=== PATIENT | female | born 1975 | race Caucasian/White ===

== ENCOUNTER → 2016-11-02 | Outpatient (CLI) | payer OTHER, MEDICAID ==
[~2016-11-02] MED LIST: /ESOM40CA; ACAM0.05 PO; COLA100C PO; FLUO20CA9 PO; FURO20TA2 PO; HYDR-4274 PO; IBUPOTC PO; MAXA10TA17; No Historical Meds; PANT40TA2 PO; PERCOCET PO; SERO400T3; TOPA100T8 PO; TOPI200T4 PO; TRAZ50TA4 PO; TRAZO50TA PO
--- NOTE | 2016-11-02 18:43 | REP ---
Clinical: Lower back pain. Technique: AP, lateral, bilateral oblique, and coned-down views. Findings: Alignment and lordosis is maintained. The vertebral bodies including transverse process and spinous processes are intact and normal. There is no evidence for acute fracture / compression injury or subluxation. No evidence for spondylolysis or spondylolisthesis. No significant degenerative change is noted. Old right rib fractures noted. Impression: Age appropriate lumbosacral spine radiograph series. Old right rib fractures. Signed by Drew Ingram MD 11/02/2016 06:34 P
== END ==
LOC: M WUC 18:12
PROVIDERS: ATTEND Physician Assistant
DX: M54.5 Low back pain (principal)

== ENCOUNTER → 2017-01-18 | Outpatient (CLI) | payer OTHER ==
[~2017-01-18] MED LIST changes: -COLA100C PO; +COLA100C3 PO
--- NOTE | 2017-01-18 11:16 | REPMRS ---
Patient History The patient states she has not had a clinical breast exam in over a year. Family history of breast cancer in mother at age 50 and breast cancer in maternal grandmother at age 60. Digital Mammo Screening Bilat: January 18, 2017 - Exam #: [id number] Bilateral CC and MLO view(s) were taken. Technologist: Gale Stiles, Technologist FINDINGS: There are scattered fibroglandular densities. There is no evidence of cancer on this mammogram. ASSESSMENT: BI-RADS/ACR category 2 mammogram. Benign finding(s). Recommendation Routine screening mammogram of both breasts in 1 year (for women over age 40). This mammogram was interpreted with the aid of an FDA-approved computer-aided dectection system. Electronically Signed By: Sujit Schwartz MD 01/18/17 [id number]
== END ==
LOC: M RAD 10:03
PROVIDERS: ATTEND Family Medicine Addiction Medicine
DX: Z12.31 Encounter for screening mammogram for malignant neoplasm of breast (principal); Z80.3 Family history of malignant neoplasm of breast

== ENCOUNTER 2017-02-11 08:29 | Emergency (ER) | payer MEDICAID, OTHER ==
[~2017-02-11] VITALS: Ht 170.2 cm; Wt 74.8 kg
[2017-02-11 08:36] VITALS: BP 115/71
[2017-02-11] MEDS ORDERED: KETOROLAC 30 MG/ML VIAL (J1885) As Ordered ONE (09:09)
[2017-02-11] MEDS ORDERED: IBUP80TA PO (09:13)
[2017-02-11] MEDS ORDERED: KETOROLAC 60 MG/2 ML VIAL (J1885) IM ONE (09:15)
--- NOTE | 2017-02-11 09:45 | REP ---
Clinical: Trauma . Comparison: 06/23/2016 . Technique: PA and lateral. Findings: The mediastinum and cardiac silhouette are normal. The lung hunt are clear and without acute consolidation, effusion, or pneumothorax. Old right rib fractures identified. Impression: 1. No acute cardiopulmonary process. 2. Old right rib fractures. No definite acute rib fracture although injury to the lateral left fifth rib cannot definitively be excluded. Signed by Drew Ingram MD 02/11/2017 09:37 A
--- NOTE | 2017-02-11 09:49 | REP ---
Clinical: Trauma. Technique: Multiple AP and lateral view of the sacrum and coccyx. Findings: The sacroiliac joints are intact, symmetric and normal. The sacrum and coccyx are intact and stable when compared with CT dated 06/13/2016. Impression: No acute sacrococcygeal fracture or injury. Signed by Drew Ingram MD 02/11/2017 09:40 A
== END 2017-02-11 10:08 | disposition home or self-care (01) ==
LOC: M ED 09:21
DX: S20.219A Contusion of unspecified front wall of thorax, initial encounter (principal); S30.0XXA Contusion of lower back and pelvis, initial encounter; W01.0XXA Fall on same level from slipping, tripping and stumbling without subsequent striking against object, initial encounter; Y92.009 Unspecified place in unspecified non-institutional (private) residence as the place of occurrence of the external cause; Y93.89 Activity, other specified; Y99.8 Other external cause status; J45.909 Unspecified asthma, uncomplicated; F41.9 Anxiety disorder, unspecified; F32.9 Major depressive disorder, single episode, unspecified; Z87.09 Personal history of other diseases of the respiratory system; Z88.0 Allergy status to penicillin; Z88.2 Allergy status to sulfonamides; Z88.8 Allergy status to other drugs, medicaments and biological substances; Z79.899 Other long term (current) drug therapy

== ENCOUNTER → 2017-11-15 | Outpatient (CLI) | payer OTHER ==
[2017-11-15 19:18] LABS: FREE T4 0.68 NG/DL (0.76-1.46)
[2017-11-15 21:47] LABS: PROLACTIN 19.5 NG/ML
[2017-11-16 07:59] LABS: LITHIUM LEVEL 0.54 MEQ/L (0.60-1.20)
== END ==
LOC: M SMT 14:12
DX: N64.52 Nipple discharge (principal); Z51.81 Encounter for therapeutic drug level monitoring
CPT/HCPCS: 80178

== ENCOUNTER 2019-07-28 00:38 | Emergency (ER) | payer BC, MEDICAID, OTHER ==
[~2019-07-28] VITALS: Ht 170.2 cm; Wt 79.5 kg
[2019-07-28 00:38] VITALS: BP 131/82
[~2019-07-28 00:38] MED LIST changes: -/ESOM40CA; -COLA100C3 PO; +COLA100C5 PO; +FLUO20CA19 PO; -FLUO20CA9 PO; -HYDR-4274 PO; +HYDR50TA70 PO; +IBUP80TA PO; +NEXI1CAP3; -PANT40TA2 PO; +PANT40TA3 PO; +TOPA100T12 PO; -TOPA100T8 PO; -TOPI200T4 PO; +TOPI200T7 PO; +TRAZ-252 PO; +TRAZ1TAB6 PO; -TRAZ50TA4 PO; -TRAZO50TA PO
[2019-07-28] MEDS ORDERED: TRAZ1TAB14 PO (00:50)
[2019-07-28] MEDS ORDERED: GABA-843 PO (00:50)
[2019-07-28] MEDS ORDERED: OXYCODONE/APAP 5MG/325MG(BULK FOR ED) 1 TABLET PO ONE (01:30)
[2019-07-28] MEDS ORDERED: CLINDAMYCIN 600 MG in IV 1 EA IV ONE (01:30)
[2019-07-28] MEDS ORDERED: PERCOCET 5MG/325MG TAB PO ONE (01:30)
[2019-07-28] MEDS ORDERED: CLEO150C PO (01:37)
[2019-07-28] MEDS ORDERED: DIFL150T PO (01:39)
== END 2019-07-28 02:04 | disposition home or self-care (01) ==
LOC: M ED 00:38
DX: K04.7 Periapical abscess without sinus (principal); Z79.899 Other long term (current) drug therapy; Z88.0 Allergy status to penicillin; Z88.1 Allergy status to other antibiotic agents; Z88.2 Allergy status to sulfonamides; Z88.8 Allergy status to other drugs, medicaments and biological substances

== ENCOUNTER 2019-08-18 18:37 | Emergency (ER) | payer BC, SELFPAY ==
[~2019-08-18] VITALS: Ht 170.2 cm; Wt 88.1 kg
[2019-08-18 18:37] VITALS: BP 130/84
[~2019-08-18 18:37] MED LIST changes: +CLEO150C PO; +DIFL150T PO; +GABA-843 PO; +TRAZ1TAB14 PO
[2019-08-18] MEDS ORDERED: PROTPAK PO (19:07)
[2019-08-18] MEDS ORDERED: DOXY-350 PO (19:41)
[2019-08-18] MEDS ORDERED: VENTAER INH (19:41)
[2019-08-18] MEDS ORDERED: DOXYCYCLINE HYCLATE 100 MG TAB PO ONE (19:45)
== END 2019-08-18 19:59 | disposition home or self-care (01) ==
LOC: M ED 18:37
DX: J01.00 Acute maxillary sinusitis, unspecified (principal); J45.909 Unspecified asthma, uncomplicated; K21.9 Gastro-esophageal reflux disease without esophagitis; F32.9 Major depressive disorder, single episode, unspecified; Z79.51 Long term (current) use of inhaled steroids; Z79.899 Other long term (current) drug therapy; Z87.442 Personal history of urinary calculi; Z88.0 Allergy status to penicillin; Z88.2 Allergy status to sulfonamides; Z88.8 Allergy status to other drugs, medicaments and biological substances

== ENCOUNTER 2019-09-07 00:41 | Emergency (ER) | payer SELFPAY ==
[~2019-09-07] VITALS: Ht 170.2 cm; Wt 77.3 kg
[~2019-09-07 00:41] MED LIST changes: +DOXY-350 PO; +PROTPAK PO; +VENTAER INH
[2019-09-07] MEDS ORDERED: PRIL20TA2 PO (01:04)
--- NOTE | 2019-09-07 02:06 | REPVR ---
PROCEDURE INFORMATION: Exam: CT Head Without Contrast Exam date and time: 09/07/2019 1:22 AM Age: 44 years old Clinical indication: Injury or trauma; Fall; Initial encounter; Concussion / head injury TECHNIQUE: Imaging protocol: Computed tomography of the head without contrast. Radiation optimization: All CT scans at this facility use at least one of these dose optimization techniques: automated exposure control; mA and/or kV adjustment per patient size (includes targeted exams where dose is matched to clinical indication); or iterative reconstruction. COMPARISON: CT Head without contrast 10/23/2013 3:26 PM FINDINGS: Brain: Normal. No hemorrhage. Unremarkable white matter. No mass effect. Ventricles: Normal. No ventriculomegaly. Bones/joints: Unremarkable. No acute fracture. Sinuses: Visualized sinuses are unremarkable. No fluid levels. Mastoid air cells: Visualized mastoid air cells are well aerated. Soft tissues: Unremarkable. IMPRESSION: No acute intracranial abnormality. Electronically signed by: Benji Mora On 09/07/2019 02:06:21 AM
--- NOTE | 2019-09-07 02:11 | REPVR ---
PROCEDURE INFORMATION: Exam: CT Maxillofacial Without Contrast Exam date and time: 09/07/2019 1:22 AM Age: 44 years old Clinical indication: Injury or trauma; Fall; Initial encounter; Concussion /head injury; Loss of consciousness not known TECHNIQUE: Imaging protocol: Computed tomography images of the face without contrast. Radiation optimization: All CT scans at this facility use at least one of these dose optimization techniques: automated exposure control; mA and/or kV adjustment per patient size (includes targeted exams where dose is matched to clinical indication); or iterative reconstruction. COMPARISON: CT Maxilofacial w/out contrast 10/23/2013 3:26 PM FINDINGS: Orbits: Orbits are normal. Globes are unremarkable. Sinuses: Normal. No air-fluid levels. Bones/joints: No acute fracture. Soft tissues: Unremarkable. IMPRESSION: No acute findings. Electronically signed by: Benji Mora On 09/07/2019 02:11:16 AM
[2019-09-07] MEDS ORDERED: TOPI100T9 PO (02:35)
[2019-09-07] MEDS ORDERED: OMEP-172 PO (02:35)
[2019-09-07] MEDS ORDERED: IBUP200T43 PO (02:35)
[2019-09-07] MEDS ORDERED: GABA-843 PO (02:35)
[2019-09-07] MEDS ORDERED: TRAZ1TAB14 PO (02:35)
[2019-09-07 03:36] VITALS: BP 142/93
== END 2019-09-07 03:40 | disposition home or self-care (01) ==
LOC: M ED 00:41
DX: T74.11XA Adult physical abuse, confirmed, initial encounter (principal); Y07.04 Female partner, perpetrator of maltreatment and neglect; Y92.9 Unspecified place or not applicable; Y93.9 Activity, unspecified; Y99.9 Unspecified external cause status; F10.10 Alcohol abuse, uncomplicated; F60.3 Borderline personality disorder; F60.7 Dependent personality disorder; Z79.899 Other long term (current) drug therapy; Z88.0 Allergy status to penicillin; Z88.2 Allergy status to sulfonamides; Z88.8 Allergy status to other drugs, medicaments and biological substances

== ENCOUNTER 2019-12-01 01:26 | Inpatient (IN) | payer OTHER, SELFPAY ==
[~2019-12-01] VITALS: Ht 170.2 cm; Wt 87.6 kg
[~2019-12-01 01:26] MED LIST changes: -FLUO20CA19 PO; +FLUO20CA22 PO; +IBUP200T43 PO; +OMEP1CAP73 PO; +PRIL20TA2 PO; +TOPI100T9 PO
[2019-12-01] MEDS ORDERED: DEXTROSE 50% 50 ML SYRINGE IV STA (01:53)
[2019-12-01 02:48] LABS: BASO % 0.3 % (0.0-1.0); EOS # 0.1 10^3/uL (0.0-0.5); EOS % 0.5 % (0.0-3.0); HEMATOCRIT 39.5 % (36.0-47.0); HEMOGLOBIN 12.8 g/dl (12.0-15.5); LYMPH # 3.1 10^3/uL (1.5-5.0); LYMPH % 33.3 % (24.0-44.0); MEAN CORPUSCULAR HEMOGLOBIN 30.6 pg (27.0-33.0); MEAN CORPUSCULAR HGB CONC 32.4 g/dl (32.0-36.5); MEAN CORPUSCULAR VOLUME 94.5 fl (80.0-96.0); MONO # 0.8 10^3/uL (0.0-0.8); MONO % 8.6 % (0.0-5.0); NEUTROPHILS # 5.3 10^3/uL (1.5-8.5); PLATELET COUNT, AUTOMATED 236 10^3/uL (150-450); RED BLOOD COUNT 4.18 10^6/uL (4.00-5.40); WHITE BLOOD COUNT 9.2 10^3/uL (4.0-10.0)
[2019-12-01 03:08] LABS: AMPHETAMINES LEVEL URINE NEGATIVE (NEGATIVE); BARBITURATES URINE NEGATIVE (NEGATIVE); BENZODIAZEPINES URINE NEGATIVE (NEGATIVE); CANNABINOIDS URINE NEGATIVE (NEGATIVE); COCAINE METABOLITE URINE NEGATIVE (NEGATIVE); METHADONE URINE NEGATIVE (NEGATIVE); OPIATES URINE POSITIVE (NEGATIVE); PHENCYCLIDINE URINE NEGATIVE (NEGATIVE)
[2019-12-01 03:19] LABS: HCG, SERUM QUALITATIVE NEGATIVE (NEGATIVE)
[2019-12-01] MEDS ORDERED: CYCL10TA PO (03:20)
[2019-12-01] MEDS ORDERED: PANT40TA3 PO (03:20)
[2019-12-01 03:33] LABS: ACETAMINOPHEN LEVEL 2.9 UG/ML (10.0-30.0); ALBUMIN 4.1 GM/DL (3.2-5.2); ALT/SGPT 23 U/L (12-78); BILIRUBIN,DIRECT < 0.1 MG/DL (0.0-0.2); BILIRUBIN,TOTAL 0.2 MG/DL (0.2-1.0); BLOOD UREA NITROGEN 19 MG/DL (7-18); CALCIUM LEVEL 8.3 MG/DL (8.5-10.1); CARBON DIOXIDE LEVEL 24 MEQ/L (21-32); CHLORIDE LEVEL 109 MEQ/L (98-107); CPK CREATINE PHOSPHOKINASE 86 U/L (26-192); CREATININE FOR GFR 0.83 MG/DL (0.55-1.30); ETHYL ALCOHOL (ETHANOL) < 0.003 % (0.000-0.010); GLOMERULAR FILTRATION RATE > 60.0 (>58); GLUCOSE, FASTING 62 MG/DL (70-100); POTASSIUM SERUM 3.2 MEQ/L (3.5-5.1); SALICYLATE LEVEL 5.1 MG/DL (5.0-30.0); SODIUM LEVEL 140 MEQ/L (136-145); TOTAL PROTEIN 7.7 GM/DL (6.4-8.2)
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
[2019-12-01] MEDS ORDERED: MOM 30ML SUSPENSION UDC PO PRN (04:15)
[2019-12-01] MEDS ORDERED: GLUCAGON FOR INJ 1 MG VIAL (J1610) SC PRN (04:15)
[2019-12-01] MEDS ORDERED: MAALOX 30 ML SUSP *UDC PO PRN (04:15)
[2019-12-01] MEDS ORDERED: GLUCOSE 4 GM CHEW TABLET PO PRN (04:15)
[2019-12-01] MEDS ORDERED: DEXTROSE 50% 50 ML SYRINGE IV PRN (04:15)
[2019-12-01] MEDS ORDERED: GABA600T4 PO (04:18)
[2019-12-01] MEDS ORDERED: TRAZ-252 PO (04:18)
[2019-12-01] MEDS ORDERED: TOPI200T7 PO (04:18)
[2019-12-01] MEDS: ACETAMINOPHEN TAB 650MG DOSE (2X325MG) PO PRN ×3 (06:00→13:49)
[2019-12-01 06:10] LABS: HEMOGLOBIN A1c 5.2 %
[2019-12-01] MEDS: D5W/0.9% SODIUM CHLORIDE 1,000 ML IV SCH ×3 (06:58→20:45)
[2019-12-01] MEDS: traZODone 50 MG TAB PO SCH ×2 (07:06→20:44)
[2019-12-01] MEDS: TOPIRAMATE (TopAMAX) 100 MG TAB PO SCH ×2 (10:00→20:44)
[2019-12-01] MEDS: GABAPENTIN 300 MG CAP PO SCH ×3 (10:00→20:44)
[2019-12-01] MEDS: PANTOPRAZOLE 40MG TAB (PROTONIX) PO SCH (10:00)
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
[2019-12-01 13:39] VITALS: BP 132/82
[2019-12-01] MEDS ORDERED: METOCLOPRAMIDE INJ 10MG/2ML VIAL (J2765) IV ONE (16:00)
[2019-12-01] MEDS ORDERED: MAG SULF 1GM/100ML (MAG RUN) 1 GM in IV 1 EA IV ONE (16:00)
[2019-12-01] MEDS ORDERED: diphenhydrAMINE INJ 50MG/ML VIAL (J1200) IV ONE (16:00)
--- NOTE | 2019-12-01 19:29 | ECGEPIP ---
[facility] - ED Test Date: 2019-12-01 Pat Name: SHANIQUE DIAL Department: Room: [place] [address] Gender: Female Straightener And Aligner: CORDELL : 1975 Requested By: Dick Morgan Order Number: [id number] Reading MD: Dick Davidson Measurements Intervals [place] Rate: 93 P: 16 MD: 132 QRS: -22 QRSD: 105 T: 14 QT: 372 QTc: 463 Interpretive Statements SINUS RHYTHM MODERATE VOLTAGE CRITERIA FOR LVH, CONSIDER NORMAL VARIANT MODERATE INTRAVENTRICULAR CONDUCTION DELAY SIMILAR TO 09/13/16 Electronically Signed on 12-01-2019 19:29:46 EDT by Dick Davidson
[2019-12-01 19:45] VITALS: BP 121/82
[2019-12-01] MEDS ORDERED: IBUPROFEN 600 MG TAB PO PRN (20:15)
[2019-12-01 22:00] VITALS: BP 119/81
[2019-12-01] MEDS ORDERED: CYCLOBENZAPRINE 10 MG TAB PO PRN (22:45)
[2019-12-01] MEDS ORDERED: RAMELTEON 8 MG TAB (ROZEREM) PO SCH (23:00)
[2019-12-01] MEDS ORDERED: SUMAtriptan SUCCINATE 25 MG TAB PO ONE (23:00)
[2019-12-02 02:00] VITALS: BP 120/77
[2019-12-02] MEDS: ACETAMINOPHEN TAB 650MG DOSE (2X325MG) PO PRN (05:39)
[2019-12-02 06:00] VITALS: BP 118/68
[2019-12-02 06:04] LABS: HEMATOCRIT 37.3 % (36.0-47.0); MEAN CORPUSCULAR HEMOGLOBIN 30.6 pg (27.0-33.0); MEAN CORPUSCULAR HGB CONC 32.2 g/dl (32.0-36.5); MEAN CORPUSCULAR VOLUME 95.2 fl (80.0-96.0); PLATELET COUNT, AUTOMATED 204 10^3/uL (150-450); RED BLOOD COUNT 3.92 10^6/uL (4.00-5.40); WHITE BLOOD COUNT 5.8 10^3/uL (4.0-10.0)
[2019-12-02 06:20] LABS: BLOOD UREA NITROGEN 12 MG/DL (7-18); CALCIUM LEVEL 8.4 MG/DL (8.5-10.1); CARBON DIOXIDE LEVEL 23 MEQ/L (21-32); CHLORIDE LEVEL 118 MEQ/L (98-107); CREATININE FOR GFR 0.76 MG/DL (0.55-1.30); GLOMERULAR FILTRATION RATE > 60.0 (>58); GLUCOSE, FASTING 94 MG/DL (70-100); MAGNESIUM LEVEL 2.5 MG/DL (1.8-2.4); SODIUM LEVEL 145 MEQ/L (136-145)
[2019-12-02] MEDS: GABAPENTIN 300 MG CAP PO SCH (08:50)
[2019-12-02] MEDS: TOPIRAMATE (TopAMAX) 100 MG TAB PO SCH (08:50)
[2019-12-02] MEDS: PANTOPRAZOLE 40MG TAB (PROTONIX) PO SCH (08:51)
[2019-12-02 10:00] VITALS: BP 114/77
--- NOTE | 2019-12-02 12:25 | MHCRPDOC ---
[facility] Consultation Consultation DATE OF CONSULTATION: 12/02/19 CONSULTATION REQUESTED BY: Dr. Georges REASON FOR CONSULTATION: s/p OD on insulin RELEVANT HISTORY: Per medical admission note: "This is a 44-year-old female who took her 's insulin after having an argument with her. She denies thoughts to commit suicide and reported that she just did it because she was upset and added that "it was a stupid thing to do". They have been under a lot of stress lately and recently moved to a new home. Pt seen with her present and states that she and her have been having a lot of financial stress which caused them to have an argument and as a result of the argument pt took her 's Triseba even though she doesn't have DM "for attention." She denies she wanted to harm or kill herself and regrets her actions. She states that she and her are getting along well now and her is very supportive. Pt denies depression, anxiety, insomnia, SI/HI, hallucinations, delusions. She is future oriented toward supporting her with reconstructive hip surgery at [facility] in [place] this coming Wednesday. She and her feel safe to go home today. PAST PSYCHIATRIC HISTORY: The patient has a "very good [facility]" [facility]. She is not currently on any psychiatric medication but has been on Effexor and Paxil in the past. She has a diagnosis of depression. One admission [facility] 02/25/2016 after OD on topomax PAST MEDICAL HISTORY: Migraines GERD Depression Neuropathy affecting the left foot / left ankle surgery Tonsillectomy hx of multiple rib fractures, which were attributed to mechanical fall hx of C2-3 fx FAMILY HISTORY: noncontributory Family Psych history: her brother had attempted suicide by overdose, cousin attempted suicide by cutting, and the patient's half-brother committed suicide by overdose two and a half years ago. Her brother has depression. PERSONAL AND SOCIAL HISTORY: The patient was born in [place] and raised in [place]. She reports a happy childhood. The patient graduated from [employer]. The patient had attended [employer] ([employer]) and she did not graduate. She got at the age of 19 and she had three sons, who are now adults. She now has a 5yr old son. She reports leaving her in 2000, and since then, she has been in a relationship and now to a women. This is her third relationship with a woman. She currently lives in [place] with her and 5yr old son. 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 SUBSTANCE ABUSE HISTORY: She doesn't smoke She drinks socially She denies recreational drug use LEGAL HISTORY: denies MENTAL STATUS EXAMINATION: Patient is a 44-year old female, who is seen in hospital bed, cooperative and pleasant Speech is reg rate/rhythm/volume Language skills are good Thought processes including: linear, logical Thought content: denies SI/HI, future oriented Abstract reasoning, and computation: good Description of associations: appropriate. Description of abnormal or psychotic thoughts: denies Judgment: good Insight: good Orientation to x3 Recent and remote memory: intact Attention span and concentration: good Language: appropriate Fund of knowledge:average Mood: "good" Affect: Euthymic, full range DIAGNOSIS: 1. Adjustment d/o with anxiety and depression PLAN: 1. d/c 1:1 sitter 2. Pt safe to d/c home with her today with follow-[facility]. Vital Signs Vital Signs Date Time Temp Pulse Resp B/P (MAP) Pulse Ox O2 Delivery O2 Flow Rate FiO2 12/02/19 10:00 98.8 84 17 114/77 (89) 99 Room Air Laboratory Data 24H Labs Laboratory Tests 2 12/01/19 13:05: Bedside Glucose (Misc Panel) 84 12/01/19 16:34: Bedside Glucose (Misc Panel) 84 12/01/19 20:50: Bedside Glucose (Misc Panel) 85 12/02/19 03:05: Bedside Glucose (Misc Panel) 100 12/02/19 05:41: Nucleated Red Blood Cells % (auto) 0.0, Anion Gap 4L, Glomerular Filtration Rate > 60.0, Calcium Level 8.4L, Magnesium Level 2.5H 12/02/19 05:53: Bedside Glucose (Misc Panel) 92 12/02/19 11:07: Bedside Glucose (Misc Panel) 106H Home Medications Current Medications Current Medications Medications (Trade) Dose Ordered Sig/Meet Route PRN Reason Start Time Stop Time Status Last Admin Dose Admin Acetaminophen (Tylenol Tab) 650 mg Q4H PRN PO PAIN OR FEVER 12/01/19 04:15 12/02/19 05:39 Al Hydrox/Mg Hydrox/Simethicone (Mylanta) 30 ml DAILY PRN PO DYSPEPSIA 12/01/19 04:15 Cyclobenzaprine HCl (Flexeril) 10 mg TIDP PRN PO MUSCLE SPASMS 12/01/19 22:45 Dextrose (Dextrose 50%) 25 ml ASDIRECTED PRN IV SEE LABEL COMMENTS 12/01/19 04:15 Dextrose (Dextrose 50%) 50 ml STAT STAT IV 12/01/19 01:53 12/01/19 01:55 DC 12/01/19 02:26 Dextrose/Sodium Chloride 1,000 ml @ 125 mls/hr Q8H IV 12/01/19 06:15 12/02/19 00:35 DC 12/01/19 20:45 Gabapentin (Neurontin) 900 mg TID PO 12/01/19 09:00 12/02/19 08:50 Glucagon (Glucagon) 1 mg ASDIRECTED PRN SC SEE LABEL COMMENTS 12/01/19 04:15 Glucose (Glucose) 16 GM ASDIRECTED PRN PO SEE LABEL COMMENTS 12/01/19 04:15 Home Med (Med Rec Complete!) ASDIRECTED XX 12/01/19 04:30 12/01/19 04:20 DC Ibuprofen (Advil) 600 mg Q12HP PRN PO PAIN 12/01/19 20:15 12/02/19 08:51 Magnesium Hydroxide (Milk Of Magnesia) 30 ml DAILY PRN PO CONSTIPATION 12/01/19 04:15 Pantoprazole Sodium (Protonix) 40 mg DAILY PO 12/01/19 09:00 12/02/19 08:51 Ramelteon (Rozerem) 8 mg QHS PO 12/01/19 23:00 12/01/19 23:04 Topiramate (TopAMAX) 200 mg BID PO 12/01/19 09:00 12/02/19 08:50 Trazodone HCl (Desyrel) 75 mg QHS PO 11/30/19 21:00 12/01/19 20:44 Scheduled Gabapentin (Gabapentin) 600 Mg Tablet, 900 MG PO TID, (Reported) Pantoprazole Sodium (Pantoprazole Sodium) 40 Mg Tablet.dr, 40 MG PO DAILY, (Reported) Topiramate (Topiramate) 200 Mg Tablet, 200 MG PO BID, (Reported) Trazodone HCl (Trazodone HCl) 50 Mg Tablet, 75 MG PO QHS, (Reported) Scheduled PRN Cyclobenzaprine HCl (Cyclobenzaprine HCl) 10 Mg Tablet, 10 MG PO TID PRN for MUS HARMONY SPASMS, (Reported) Allergies Coded Allergies: Cephalosporins (Verified Allergy, Unknown, 07/28/19) Penicillins (Verified Allergy, Unknown, HIVES, 07/28/19) Quinazolinones (Verified Allergy, Unknown, RESPIRATORY DISTRESS, 07/28/19) Sulfa (Sulfonamide Antibiotics) (Verified Allergy, Unknown, HIVES , 07/28/19) cetylpyridinium chloride (Verified Allergy, Unknown, RESPIRATORY DISTRESS, 07/28/19) WILLIAM MCKINNON DO Dec 02, 2019 11:56
--- NOTE | 2019-12-03 12:08 | DS.PDOC ---
Discharge Summary General Date of Admission Dec 01, 2019 at 04:13 Date of Discharge 12/02/19 Discharge Summary PROCEDURES PERFORMED DURING STAY: [None]. DISCHARGE DIAGNOSES: Hypoglycemia Intentional intake of Trulicity for attention seeking Adjustement disorder with anxiety and depression Borderline personality disorder Migraines GERD Neuropathhic pain in the ankle. Alcohol use disorder hx of multiple rib fractures, which were attributed to mechanical fall hx of C2-3 fx COMPLICATIONS/CHIEF COMPLAINT: Overdose On Insulin. HISTORY OF PRESENT ILLNESS: See history and physical HOSPITAL COURSE: This is a 44-year-old with a history of depression, Alcohol use disorder, Borderline personality disorder, dependent disorder ,migraines GERD and neuropathic pain was admitted for hypoglycemia initially thought she took tresiba insulin but later confirmed that it was trulicity. Tiffanie said she was drunk and wa having an argument with regarding financial issues and then she took her "s trulicity to gain attention. Says after she came off the Buzz she called her son in [place] who works as an EMT and told him what she took . Son urged her to come to the ED to be checked out. Hypoglycemia probably from alcohol and not taking po food for several hours. Patient took trulicity and not Treseba insulin. Trulicity does not cause much hypoglycemia No hypoglycemia after admission History of depression and anxiety seen by psychiatry and cleared for discharge. she is not a threat to herself and does not have any suicidal thoughts or ideas. Multiple bruises and abrasions New bruises and abrasions or on the hands. She also has old bruises on her legs. She has a history of ankle fracture, neck fracture and rib fractures says due to mechanical fall. Migraines topiramate Left ankle neuropathic pain gabapentin H/o Polysubstance Abuse smoking cessation education GERD - PPI DISCHARGE MEDICATIONS: Please see below. ALLERGIES: Please see below. PHYSICAL EXAMINATION ON DISCHARGE: VITAL SIGNS: Please see below. GEN: well-nourished / well developed/ anxious INTEGUMENT: Has old bruises on her lower legs along with fresh bruises and abrasions on her hands and wrists HEENT: NCAT / lips acyanotic /mucus membranes moist and pink CVS: RRR/NMRG/ trace lower extremity edema LUNGS: clear to auscultation bilaterally on room air ABDOMEN: soft & not tender with palpation NEURO: CN 2-12 are grossly intact / speech is not dysarthric PSYCH: alert and oriented to person place and time/ able to understand and follow all commands LABORATORY DATA: Please see below. ACTIVITY: [As tolerated]. DIET: Regular DISPOSITION: 01 Home, Self-Care. DISCHARGE INSTRUCTIONS: Follow up with PMD in 1 week DISCHARGE CONDITION: [Stable]. TIME SPENT ON DISCHARGE: 35 minutes. Vital Signs/I&Os Vital Signs Date Time Temp Pulse Resp B/P (MAP) Pulse Ox O2 Delivery O2 Flow Rate FiO2 12/02/19 10:00 98.8 84 17 114/77 (89) 99 Room Air I&O- Last 24 Hours up to 6 AM 12/03/19 06:00 Intake Total 600 ml Output Total 0 ml Balance 600 ml Discharge Medications Scheduled Gabapentin (Gabapentin) 600 Mg Tablet, 900 MG PO TID, (Reported) Pantoprazole Sodium (Pantoprazole Sodium) 40 Mg Tablet.dr, 40 MG PO DAILY, (Reported) Topiramate (Topiramate) 200 Mg Tablet, 200 MG PO BID, (Reported) Trazodone HCl (Trazodone HCl) 50 Mg Tablet, 75 MG PO QHS, (Reported) Scheduled PRN Cyclobenzaprine HCl (Cyclobenzaprine HCl) 10 Mg Tablet, 10 MG PO TID PRN for MUSCLE SPASMS, (Reported) Allergies Coded Allergies: Cephalosporins (Verified Allergy, Unknown, 07/28/19) Penicillins (Verified Allergy, Unknown, HIVES, 07/28/19) Quinazolinones (Verified Allergy, Unknown, RESPIRATORY DISTRESS, 07/28/19) Sulfa (Sulfonamide Antibiotics) (Verified Allergy, Unknown, HIVES , 07/28/19) cetylpyridinium chloride (Verified Allergy, Unknown, RESPIRATORY DISTRESS, 07/28/19) CURTIS CANTU MD Dec 03, 2019 12:08
== END 2019-12-02 14:00 | disposition home or self-care (01) | DRG 812 ==
LOC: M ED 01:26 → M ED INP 04:13 → ENRESERVDT 07:42 → ENRESERVTM 07:42 → ENRESERVDT 12:50 → ENRESERVTM 12:50 → M ED INP 13:16 → M MSPAV 13:32
PROVIDERS: ADMIT Internal Medicine; ATTEND Internal Medicine Nephrology
DX: T38.3X2A Poisoning by insulin and oral hypoglycemic [antidiabetic] drugs, intentional self-harm, initial encounter (principal); F32.9 Major depressive disorder, single episode, unspecified; E16.2 Hypoglycemia, unspecified; G43.909 Migraine, unspecified, not intractable, without status migrainosus; K21.9 Gastro-esophageal reflux disease without esophagitis; G57.92 Unspecified mononeuropathy of left lower limb; Z79.899 Other long term (current) drug therapy; Z88.0 Allergy status to penicillin; Z88.2 Allergy status to sulfonamides; Z88.1 Allergy status to other antibiotic agents; Z88.8 Allergy status to other drugs, medicaments and biological substances; F10.10 Alcohol abuse, uncomplicated; Z81.8 Family history of other mental and behavioral disorders; F43.23 Adjustment disorder with mixed anxiety and depressed mood; F60.3 Borderline personality disorder

== ENCOUNTER 2020-02-10 18:04 | Emergency (ER) | payer OTHER ==
[~2020-02-10] VITALS: Ht 170.2 cm; Wt 92.7 kg
[~2020-02-10 18:04] MED LIST changes: +CYCL-707 PO; +GABA600T4 PO
[2020-02-10] MEDS ORDERED: OMEP40CA97 PO (18:23)
[2020-02-10] MEDS ORDERED: IBUP200T45 PO (18:23)
[2020-02-10] MEDS ORDERED: TRAZ-186 PO (18:23)
[2020-02-10] MEDS ORDERED: GI COCKTAIL 50ML BTL(HYOSCYAMINE/MAALOX/LIDOCAINE VISCOUS)(1:3:1) PO ONE (18:30)
[2020-02-10 18:41] LABS: BASO % 0.3 % (0.0-1.0); EOS # 0.1 10^3/uL (0.0-0.5); EOS % 1.8 % (0.0-3.0); HEMOGLOBIN 12.6 g/dl (12.0-15.5); LYMPH # 2.7 10^3/uL (1.5-5.0); LYMPH % 39.7 % (24.0-44.0); MEAN CORPUSCULAR HEMOGLOBIN 29.7 pg (27.0-33.0); MEAN CORPUSCULAR HGB CONC 32.3 g/dl (32.0-36.5); MONO # 0.5 10^3/uL (0.0-0.8); MONO % 7.2 % (0.0-5.0); NEUTROPHILS # 3.5 10^3/uL (1.5-8.5); NEUTROPHILS % 50.7 % (36.0-66.0); PLATELET COUNT, AUTOMATED 219 10^3/uL (150-450); RED BLOOD COUNT 4.24 10^6/uL (4.00-5.40); WHITE BLOOD COUNT 6.8 10^3/uL (4.0-10.0)
[2020-02-10 19:13] LABS: ALBUMIN 3.7 GM/DL (3.2-5.2); ALT/SGPT 29 U/L (12-78); BILIRUBIN,DIRECT < 0.1 MG/DL (0.0-0.2); BILIRUBIN,TOTAL 0.2 MG/DL (0.2-1.0); BLOOD UREA NITROGEN 15 MG/DL (7-18); CALCIUM LEVEL 8.7 MG/DL (8.5-10.1); CARBON DIOXIDE LEVEL 23 MEQ/L (21-32); CHLORIDE LEVEL 110 MEQ/L (98-107); CK-MB VALUE MASS < 1.0 NG/ML (<3.6); CPK CREATINE PHOSPHOKINASE 32 U/L (26-192); CREATININE FOR GFR 0.96 MG/DL (0.55-1.30); GLOMERULAR FILTRATION RATE > 60.0 (>58); GLUCOSE, FASTING 84 MG/DL (70-100); LIPASE 201 U/L (73-393); MB/CK RELATIVE INDEX 3.12 (< OR =4); NT-PRO BNP 22 PG/ML (<125); POTASSIUM SERUM 3.6 MEQ/L (3.5-5.1); SODIUM LEVEL 143 MEQ/L (136-145); TOTAL PROTEIN 6.9 GM/DL (6.4-8.2); TROPONIN I < 0.02 NG/ML (< 0.10)
[2020-02-10] MEDS ORDERED: ISOVUE-370 76% 100ML VIAL As Ordered ONE (19:36)
--- NOTE | 2020-02-10 20:09 | REPVR ---
PROCEDURE INFORMATION: Exam: CT Angiography Chest With Contrast Exam date and time: 02/10/2020 7:55 PM Age: 44 years old Clinical indication: Chest pain; Additional info: Chest pain; SOB TECHNIQUE: Imaging protocol: Computed tomographic angiography of the chest with intravenous contrast. Axial, coronal and sagittal reformatted images were created and reviewed. 3D rendering: MIP and/or 3D reconstructed images were created by the technologist. Radiation optimization: All CT scans at this facility use at least one of these dose optimization techniques: automated exposure control; mA and/or kV adjustment per patient size (includes targeted exams where dose is matched to clinical indication); or iterative reconstruction. Contrast material: ISOVUE 370; Contrast volume: 75 ml; Contrast route: IV; COMPARISON: CT Chest without contrast 05/30/2016 8:06 PM FINDINGS: Pulmonary arteries: Contrast opacification satisfactory. No intraluminal filling defect. Aorta: Unremarkable. No aneurysm or dissection. Lungs: Mild linear stranding and groundglass, likely due to atelectasis and/or scarring. No focal consolidation. Pleural space: Unremarkable. No pneumothorax. No pleural effusion. Heart: Unremarkable. No cardiomegaly. No pericardial effusion. Lymph nodes: No pathologically enlarged lymph nodes. Diaphragm: Elevated right hemidiaphragm. Bones/joints: No acute osseous abnormality. Mild degenerative changes. Soft tissues: Unremarkable. IMPRESSION: 1. No CT evidence of pulmonary embolism. 2. Additional findings, as above. Electronically signed by: Jose Herrera On 02/10/2020 20:09:13 PM
--- NOTE | 2020-02-10 20:10 | REP ---
Clinical: Acute chest pain . Comparison: 02/11/2017 . Findings: The mediastinum and cardiac silhouette are stable and within normal limits for portable technique. The lung hunt are clear without acute consolidation, effusion, or pneumothorax. Skeletal structures are intact. Impression: No acute cardiopulmonary process appreciated. Electronically Signed by Drew Ingram MD 02/10/2020 08:02 P
[2020-02-10 21:07] VITALS: BP 117/66
--- NOTE | 2020-02-11 08:10 | ECGEPIP ---
[facility] - ED Test Date: 2020-02-10 Pat Name: SHANIQUE DIAL Department: Room: - Gender: Female Direct Support Staff Member: bernardo : 1975 Requested By: Ronel Duron Order Number: [id number] Reading MD: Ronel Duron Measurements Intervals [place] Rate: 106 P: 41 NC: 128 QRS: -21 QRSD: 94 T: 68 QT: 332 QTc: 441 Interpretive Statements SINUS TACHYCARDIA BORDERLINE LEFT AXIS DEVIATION MINIMAL VOLTAGE CRITERIA FOR LVH, CONSIDER NORMAL VARIANT NONSPECIFIC ST & T-WAVE ABNORMALITY ABNORMAL RHYTHM ECG INCREASED RATE 12/01/19 Electronically Signed on 02-11-2020 8:10:11 EDT by Ronel Duron
[2020-02-28] MEDS ORDERED: ALBU83IN INH (10:29)
== END 2020-02-10 21:12 | disposition home or self-care (01) ==
LOC: M ED 18:04
DX: R07.9 Chest pain, unspecified (principal); K21.9 Gastro-esophageal reflux disease without esophagitis; J45.909 Unspecified asthma, uncomplicated; F41.9 Anxiety disorder, unspecified; F32.9 Major depressive disorder, single episode, unspecified; Z87.442 Personal history of urinary calculi; Z90.721 Acquired absence of ovaries, unilateral; Z79.899 Other long term (current) drug therapy; Z88.0 Allergy status to penicillin; Z88.2 Allergy status to sulfonamides; Z88.1 Allergy status to other antibiotic agents
CPT/HCPCS: 36415; 71045; 71275; 80048; 80076; 82550; 82553; 83690; 83880; 84443; 85025; 85379; 87040; 93005; 93041; 94760; 99285; Q9967

== ENCOUNTER → 2020-02-23 | Outpatient (CLI) | payer OTHER ==
[~2020-02-23] MED LIST changes: +ALBU83IN INH; +IBUP200T45 PO; +OMEP40CA97 PO; +TRAZ-186 PO
== END ==
LOC: M LABSMTC 14:26
PROVIDERS: ATTEND Family Medicine
DX: Z11.59 Encounter for screening for other viral diseases (principal); Z03.818 Encounter for observation for suspected exposure to other biological agents ruled out
CPT/HCPCS: C9803; U0003

== ENCOUNTER 2020-03-06 22:52 | Emergency (ER) | payer OTHER ==
[~2020-03-06] VITALS: Ht 170.2 cm; Wt 92.5 kg
[2020-03-06 22:53] VITALS: BP 133/76
== END 2020-03-07 00:10 | disposition left against medical advice (07) ==
LOC: M ED 22:52
DX: Z53.21 Procedure and treatment not carried out due to patient leaving prior to being seen by health care provider (principal)

== ENCOUNTER 2020-04-24 14:36 | Emergency (ER) | payer OTHER ==
[~2020-04-24 14:36] MED LIST changes: +PANT40TA29 PO; -PANT40TA3 PO
[2020-04-24] MEDS ORDERED: ONDANSETRON 4MG/2ML VIAL ONE (15:32)
[2020-04-24] MEDS ORDERED: ONDANSETRON 4MG/2ML VIAL As Ordered ONE (15:52)
[2020-04-24] MEDS ORDERED: PANTOPRAZOLE 40MG VIAL (C9113 PER 1) ONE (15:53)
[2020-04-24] MEDS ORDERED: PANTOPRAZOLE 40MG VIAL (C9113 PER 1) As Ordered ONE (15:53)
[2020-04-24] MEDS ORDERED: GASTROGRAFIN SOLUTION 30ML (Q9963) ONE (16:13)
[2020-04-24] MEDS ORDERED: GASTROGRAFIN SOLUTION 30ML (Q9963) As Ordered ONE (16:13)
[2020-04-24] MEDS ORDERED: ISOVUE-370 76% 100ML VIAL As Ordered ONE (17:38)
[2020-05-24 12:02] LABS: APPEARANCE, URINE MANUAL CLOUDY (CLEAR); COLOR, URINE MANUAL ORANGE (YELLOW)
[2020-05-24 12:03] LABS: GLUCOSE, URINE (UA) MANUAL OBSCURED mg/dL (NEGATIVE); KETONE, URINE MANUAL OBSCURED mg/dL (NEGATIVE); PH,URINE MAN OBSCURED UNITS (5.0 - 7.0); PROTEIN, URINE MANUAL OBSCURED mg/dL (NEGATIVE)
[2020-05-24 12:04] LABS: BILIRUBIN, URINE MANUAL OBSCURED (NEGATIVE); BLOOD URINE MANUAL OBSCURED (NEGATIVE); LEUKOCYTE ESTERASE, URINE MAN OBSCURED (NEGATIVE); NITRITE, URINE MANUAL OBSCURED (NEGATIVE); RBC, URINE 0-1 /hpf (0-3); UROBILINOGEN, URINE MANUAL OBSCURED mg/dl (NORMAL)
[2020-05-24 12:05] LABS: BACTERIA, URINE SMALL AMOUNT; HYALINE CAST, URINE NONE SEEN /lpf (0-1); MUCUS, URINE SMALL AMOUNT (NEGATIVE); SQUAMOUS EPITHELIAL CELL URINE LARGE AMOUNT /hpf (SMALL AMT)
[2020-05-24 12:06] LABS: INR 0.95; PARTIAL THROMBOPLASTIN TIME 32.8 SECONDS (25.0-38.4); PROTHROMBIN TIME 12.8 SECONDS (11.8-14.0)
[2020-05-24 12:47] LABS: BASO % 0.4 % (0.0-1.0); EOS % 0.7 % (0.0-3.0); HEMATOCRIT 35.4 % (36.0-47.0); HEMOGLOBIN 11.5 g/dl (12.0-15.5); LYMPH # 1.5 10^3/uL (1.5-5.0); MEAN CORPUSCULAR HEMOGLOBIN 29.9 pg (27.0-33.0); MEAN CORPUSCULAR HGB CONC 32.5 g/dl (32.0-36.5); MEAN CORPUSCULAR VOLUME 92.2 fl (80.0-96.0); MONO # 0.4 10^3/uL (0.0-0.8); MONO % 6.5 % (0.0-5.0); NEUTROPHILS # 3.7 10^3/uL (1.5-8.5); PLATELET COUNT, AUTOMATED 221 10^3/uL (150-450); RED BLOOD COUNT 3.84 10^6/uL (4.00-5.40); WHITE BLOOD COUNT 5.6 10^3/uL (4.0-10.0)
[2020-06-08 11:28] LABS: HCG, SERUM QUALITATIVE NEGATIVE (NEGATIVE)
[2020-06-08 12:41] LABS: ALBUMIN 3.4 GM/DL (3.2-5.2); ALT/SGPT 25 U/L (12-78); AMYLASE 25 U/L (25-115); BILIRUBIN,DIRECT < 0.1 MG/DL (0.0-0.2); BILIRUBIN,TOTAL 0.2 MG/DL (0.2-1.0); BLOOD UREA NITROGEN 12 MG/DL (7-18); CALCIUM LEVEL 8.3 MG/DL (8.5-10.1); CARBON DIOXIDE LEVEL 19 MEQ/L (21-32); CHLORIDE LEVEL 117 MEQ/L (98-107); CREATININE FOR GFR 0.71 MG/DL (0.55-1.30); GLOMERULAR FILTRATION RATE > 60.0 (>58); GLUCOSE, FASTING 102 MG/DL (70-100); LIPASE 129 U/L (73-393); SODIUM LEVEL 143 MEQ/L (136-145); TOTAL PROTEIN 6.7 GM/DL (6.4-8.2)
== END 2020-04-24 19:50 | disposition home or self-care (01) ==
LOC: M ED 14:36
DX: K59.00 Constipation, unspecified (principal); K21.9 Gastro-esophageal reflux disease without esophagitis; Z79.899 Other long term (current) drug therapy; Z88.0 Allergy status to penicillin; Z88.2 Allergy status to sulfonamides
CPT/HCPCS: 74177; 80048; 80076; 81000; 82150; 83690; 83970; 84703; 85025; 85610; 85730; 86850; 86900; 86901; 87086; 96374; 96375; 99283; C9113; J2405; Q9963; Q9967

== ENCOUNTER → 2020-04-30 | Emergency (ER) | payer OTHER ==
[~2020-04-30] MED LIST changes: +METO5TAB2; +PANTOPRAZOLE 40MG VIAL (C9113 PER 1) As Ordered ONE; +PANTOPRAZOLE 40MG VIAL (C9113 PER 1) ONE; +RIZA5TAB; +SUCR1TAB56
[2020-06-02 13:02] LABS: HEMATOCRIT 34.8 % (36.0-47.0); HEMOGLOBIN 11.4 g/dl (12.0-15.5); MEAN CORPUSCULAR HEMOGLOBIN 29.7 pg (27.0-33.0); MEAN CORPUSCULAR HGB CONC 32.8 g/dl (32.0-36.5); MEAN CORPUSCULAR VOLUME 90.6 fl (80.0-96.0); PLATELET COUNT, AUTOMATED 213 10^3/uL (150-450); RED BLOOD COUNT 3.84 10^6/uL (4.00-5.40); WHITE BLOOD COUNT 5.6 10^3/uL (4.0-10.0)
[2020-06-02 14:01] LABS: APPEARANCE, URINE CLEAR (CLEAR); BACTERIA, URINE AUTO NEGATIVE (NEGATIVE); BILIRUBIN, URINE AUTO NEGATIVE (NEGATIVE); BLOOD, URINE BLOOD 1+ (NEGATIVE); COLOR, URINE YELLOW (YELLOW); GLUCOSE, URINE (UA) AUTO NEGATIVE (NEGATIVE); KETONE, URINE AUTO NEGATIVE (NEGATIVE); LEUKOCYTE ESTERASE, URINE AUTO NEGATIVE (NEGATIVE); MUCUS, URINE SMALL (NEGATIVE); NITRITE, URINE AUTO NEGATIVE (NEGATIVE); PROTEIN, URINE AUTO NEGATIVE (NEGATIVE); RBC, URINE AUTO 1 /HPF (0-3); SPECIFIC GRAVITY URINE AUTO 1.014 (1.002-1.035); SQUAMOUS EPITHELIAL CELL UR AU 1 /HPF (0-6); UROBILINOGEN, URINE AUTO 0.2 mg/dL (0.0-2.0); WBC, URINE AUTO 1 /HPF (0-3)
--- NOTE | 2020-06-06 14:46 | ECGEPIP ---
SINUS RHYTHM PRWP SEE SCANNED DOWNTIME REPORT MTDD
[2020-06-13 13:43] LABS: ALBUMIN 3.5 GM/DL (3.2-5.2); ALT/SGPT 24 U/L (12-78); BILIRUBIN,TOTAL 0.1 MG/DL (0.2-1.0); BLOOD UREA NITROGEN 9 MG/DL (7-18); CALCIUM LEVEL 8.7 MG/DL (8.5-10.1); CARBON DIOXIDE LEVEL 21 MEQ/L (21-32); CHLORIDE LEVEL 111 MEQ/L (98-107); CREATININE FOR GFR 0.67 MG/DL (0.55-1.30); GLOMERULAR FILTRATION RATE > 60.0 (>58); GLUCOSE, FASTING 85 MG/DL (70-100); LIPASE 120 U/L (73-393); POTASSIUM SERUM 3.5 MEQ/L (3.5-5.1); SODIUM LEVEL 141 MEQ/L (136-145); TOTAL PROTEIN 6.9 GM/DL (6.4-8.2)
[2020-06-13 13:45] LABS: HCG, SERUM QUALITATIVE NEGATIVE (NEGATIVE)
[2020-06-15 10:24] LABS: HEMATOCRIT 35.1 % (36.0-47.0); HEMOGLOBIN 11.4 g/dl (12.0-15.5); MEAN CORPUSCULAR HEMOGLOBIN 29.8 pg (27.0-33.0); MEAN CORPUSCULAR HGB CONC 32.5 g/dl (32.0-36.5); MEAN CORPUSCULAR VOLUME 91.9 fl (80.0-96.0); PLATELET COUNT, AUTOMATED 181 10^3/uL (150-450); RED BLOOD COUNT 3.82 10^6/uL (4.00-5.40)
== END | disposition home or self-care (01) ==
LOC: M ED 14:45
DX: K92.2 Gastrointestinal hemorrhage, unspecified (principal); K21.9 Gastro-esophageal reflux disease without esophagitis; G43.909 Migraine, unspecified, not intractable, without status migrainosus; G47.00 Insomnia, unspecified; J45.909 Unspecified asthma, uncomplicated; F41.1 Generalized anxiety disorder; Z88.0 Allergy status to penicillin; Z88.1 Allergy status to other antibiotic agents; Z88.2 Allergy status to sulfonamides; Z79.899 Other long term (current) drug therapy
CPT/HCPCS: 74176; 80053; 81001; 83605; 83690; 84703; 85027; 86850; 86900; 86901; 87086; 93005; 96374; 99284; C9113

== ENCOUNTER 2020-06-29 20:44 | Emergency (ER) | payer OTHER ==
[~2020-06-29] VITALS: Ht 170.2 cm; Wt 98.9 kg
[~2020-06-29 20:44] MED LIST changes: -METO5TAB2; -PANTOPRAZOLE 40MG VIAL (C9113 PER 1) As Ordered ONE; -PANTOPRAZOLE 40MG VIAL (C9113 PER 1) ONE; -RIZA5TAB; -SUCR1TAB56
[2020-06-29] MEDS ORDERED: LIDOCAINE W/EPINEPHRINE 1% 20ML VIAL SC ONE (21:45)
[2020-06-29 22:18] VITALS: BP 168/99
== END 2020-06-29 22:23 | disposition home or self-care (01) ==
LOC: M ED 20:44
DX: S41.112A Laceration without foreign body of left upper arm, initial encounter (principal); W01.198A Fall on same level from slipping, tripping and stumbling with subsequent striking against other object, initial encounter; Y92.009 Unspecified place in unspecified non-institutional (private) residence as the place of occurrence of the external cause; Y93.89 Activity, other specified; Y99.9 Unspecified external cause status; Z79.2 Long term (current) use of antibiotics; Z79.51 Long term (current) use of inhaled steroids; Z79.899 Other long term (current) drug therapy; Z88.0 Allergy status to penicillin; Z88.1 Allergy status to other antibiotic agents; Z88.2 Allergy status to sulfonamides

== ENCOUNTER 2020-07-31 17:12 | Emergency (ER) | payer OTHER ==
[~2020-07-31] VITALS: Ht 170.2 cm; Wt 100.0 kg
[2020-07-31] MEDS ORDERED: SUCR1TAB56 (17:24)
[2020-07-31] MEDS ORDERED: METO5TAB2 (17:24)
[2020-07-31] MEDS ORDERED: RIZA5TAB (17:24)
[2020-07-31 18:39] LABS: BASO % 0.5 % (0.0-1.0); EOS % 0.5 % (0.0-3.0); HEMATOCRIT 34.6 % (36.0-47.0); HEMOGLOBIN 10.7 g/dl (12.0-15.5); LYMPH # 2.1 10^3/uL (1.5-5.0); LYMPH % 27.1 % (24.0-44.0); MEAN CORPUSCULAR HEMOGLOBIN 28.2 pg (27.0-33.0); MEAN CORPUSCULAR HGB CONC 30.9 g/dl (32.0-36.5); MEAN CORPUSCULAR VOLUME 91.1 fl (80.0-96.0); MONO # 0.5 10^3/uL (0.0-0.8); MONO % 6.6 % (0.0-5.0); PLATELET COUNT, AUTOMATED 222 10^3/uL (150-450); WHITE BLOOD COUNT 7.7 10^3/uL (4.0-10.0)
[2020-07-31 18:51] LABS: INR 0.98; PROTHROMBIN TIME 13.2 SECONDS (12.5-14.3)
[2020-07-31 18:52] LABS: PARTIAL THROMBOPLASTIN TIME 34.1 SECONDS (24.2-38.5)
--- NOTE | 2020-07-31 19:06 | REPVR ---
PROCEDURE INFORMATION: Exam: US Duplex Lower Extremity Veins, Bilateral Exam date and time: 07/31/2020 6:48 PM Age: 45 years old Clinical indication: Pain; Leg, lower and foot; Bilateral; Additional info: Swelling and pain R/O dvt TECHNIQUE: Imaging protocol: Real-time duplex ultrasound of the extremities with 2-D jimenez scale, color Doppler flow and spectral waveform analysis with image documentation. Complete exam focused on the bilateral lower extremity veins. COMPARISON: No relevant prior studies available. FINDINGS: Right deep veins: Unremarkable. The common femoral, femoral, proximal profunda femoral and popliteal veins are patent without thrombus. Normal Doppler waveforms. Normal compressibility and/or augmentation response. Right superficial veins: Saphenofemoral junction is patent without thrombus. Left deep veins: Unremarkable. The common femoral, femoral, proximal profunda femoral and popliteal veins are patent without thrombus. Normal Doppler waveforms. Normal compressibility and/or augmentation response. Left superficial veins: Saphenofemoral junction is patent without thrombus. Soft tissues: 4.0 x 0.4 x 1 cm complex hypoechoic area at popliteal fossa on the right, representing popliteal fossa cyst. 3.8 x 0.6 x 1.2 cm anechoic area in the left popliteal fossa representing popliteal fossa cyst. IMPRESSION: No evidence of deep vein thrombosis. Electronically signed by: Jung Woo On 07/31/2020 19:02:24 PM
[2020-07-31 19:09] LABS: BLOOD UREA NITROGEN 17 MG/DL (7-18); CALCIUM LEVEL 8.3 MG/DL (8.5-10.1); CARBON DIOXIDE LEVEL 21 MEQ/L (21-32); CHLORIDE LEVEL 112 MEQ/L (98-107); CK-MB VALUE MASS < 1.0 NG/ML (<3.6); CPK CREATINE PHOSPHOKINASE 41 U/L (26-192); CREATININE FOR GFR 0.67 MG/DL (0.55-1.30); FREE T4 0.74 NG/DL (0.76-1.46); GLOMERULAR FILTRATION RATE > 60.0 (>58); GLUCOSE, FASTING 83 MG/DL (70-100); MAGNESIUM LEVEL 2.2 MG/DL (1.8-2.4); MB/CK RELATIVE INDEX 2.44 (< OR =4); NT-PRO BNP 30 PG/ML (<125); POTASSIUM SERUM 3.9 MEQ/L (3.5-5.1); SODIUM LEVEL 140 MEQ/L (136-145); TROPONIN I < 0.02 NG/ML (< 0.10)
[2020-07-31 19:10] LABS: HCG, SERUM QUALITATIVE NEGATIVE (NEGATIVE)
[2020-07-31 20:27] VITALS: BP 150/80
--- NOTE | 2020-08-01 18:55 | ECGEPIP ---
[facility] - ED Test Date: 2020-07-31 Pat Name: SHANIQUE DIAL Department: Room: - Gender: Female Lead Quality Technician: nancy : 1975 Requested By: SHANIQUE PITTMAN Order Number: [id number] Reading MD: Ronel Duron Measurements Intervals [place] Rate: 82 P: 42 IN: 137 QRS: -21 QRSD: 98 T: 23 QT: 373 QTc: 437 Interpretive Statements SINUS RHYTHM BORDERLINE LEFT AXIS DEVIATION LOW QRS VOLTAGE IN PRECORDIAL LEADS NSTTW abnormalities DECREASED RATE 02/10/20 Electronically Signed on 08-01-2020 18:55:24 EST by Ronel Duron
== END 2020-07-31 20:29 | disposition home or self-care (01) ==
LOC: M ED 17:12
DX: R22.43 Localized swelling, mass and lump, lower limb, bilateral (principal); D64.9 Anemia, unspecified; K21.9 Gastro-esophageal reflux disease without esophagitis; G43.909 Migraine, unspecified, not intractable, without status migrainosus; Z79.899 Other long term (current) drug therapy; Z88.0 Allergy status to penicillin; Z88.1 Allergy status to other antibiotic agents; Z88.2 Allergy status to sulfonamides; Z88.8 Allergy status to other drugs, medicaments and biological substances

== ENCOUNTER 2020-08-20 21:44 | Inpatient (IN) | payer OTHER ==
[~2020-08-20] VITALS: Ht 170.2 cm; Wt 90.9 kg
[~2020-08-20 21:44] MED LIST changes: +METO5TAB2; +RIZA5TAB; +SUCR1TAB56
[2020-08-20 22:50] LABS: HEMATOCRIT 39.4 % (36.0-47.0); HEMOGLOBIN 12.1 g/dl (12.0-15.5); MEAN CORPUSCULAR HEMOGLOBIN 27.5 pg (27.0-33.0); MEAN CORPUSCULAR HGB CONC 30.7 g/dl (32.0-36.5); MEAN CORPUSCULAR VOLUME 89.5 fl (80.0-96.0); PLATELET COUNT, AUTOMATED 258 10^3/uL (150-450); WHITE BLOOD COUNT 6.4 10^3/uL (4.0-10.0)
[2020-08-20 23:06] LABS: HCG, SERUM QUALITATIVE NEGATIVE (NEGATIVE)
[2020-08-20 23:08] LABS: AMPHETAMINES LEVEL URINE NEGATIVE (NEGATIVE); BARBITURATES URINE NEGATIVE (NEGATIVE); BENZODIAZEPINES URINE NEGATIVE (NEGATIVE); CANNABINOIDS URINE NEGATIVE (NEGATIVE); COCAINE METABOLITE URINE NEGATIVE (NEGATIVE); METHADONE URINE NEGATIVE (NEGATIVE); OPIATES URINE NEGATIVE (NEGATIVE); PHENCYCLIDINE URINE NEGATIVE (NEGATIVE)
[2020-08-20 23:17] LABS: ACETAMINOPHEN LEVEL < 2.0 UG/ML (10.0-30.0); ALBUMIN 4.1 GM/DL (3.2-5.2); ALT/SGPT 35 U/L (12-78); BILIRUBIN,DIRECT < 0.1 MG/DL (0.0-0.2); BILIRUBIN,TOTAL 0.2 MG/DL (0.2-1.0); BLOOD UREA NITROGEN 11 MG/DL (7-18); CALCIUM LEVEL 8.7 MG/DL (8.5-10.1); CARBON DIOXIDE LEVEL 21 MEQ/L (21-32); CHLORIDE LEVEL 116 MEQ/L (98-107); CREATININE FOR GFR 0.69 MG/DL (0.55-1.30); ETHYL ALCOHOL (ETHANOL) 0.204 % (0.000-0.010); GLOMERULAR FILTRATION RATE > 60.0 (>58); GLUCOSE, FASTING 88 MG/DL (70-100); POTASSIUM SERUM 4.2 MEQ/L (3.5-5.1); SALICYLATE LEVEL < 1.7 MG/DL (5.0-30.0); SODIUM LEVEL 144 MEQ/L (136-145); THYROID STIMULATING HORMONE 0.835 uIU/ML (0.358-3.740); TOTAL PROTEIN 7.6 GM/DL (6.4-8.2)
[2020-08-21] MEDS ORDERED: LORazepam 1 MG TAB PO ONE (05:00)
[2020-08-21] MEDS ORDERED: TRAZ-252 PO (05:28)
[2020-08-21] MEDS ORDERED: SUCR1TAB56 PO (05:28)
[2020-08-21] MEDS ORDERED: PROAAER10 INH (05:28)
[2020-08-21] MEDS ORDERED: CYCL5TAB PO (05:28)
[2020-08-21] MEDS ORDERED: RIZA5TAB PO (05:28)
[2020-08-21] MEDS ORDERED: METO5TAB2 PO (05:28)
[2020-08-21] MEDS ORDERED: IBUP-1730 PO (05:28)
[2020-08-21] MEDS ORDERED: FURO20TA2 PO (05:28)
[2020-08-21] MEDS ORDERED: PAMA50TA PO (05:28)
[2020-08-21] MEDS ORDERED: PILL CUTTER 1 EACH XX PRN (06:00)
[2020-08-21] MEDS ORDERED: MAALOX 30 ML SUSP *UDC PO PRN (06:00)
[2020-08-21] MEDS ORDERED: ALBUTEROL 90 MCG/ACT 8GM HFA INHALER INH PRN (06:00)
[2020-08-21] MEDS ORDERED: METOCLOPRAMIDE 5 MG TAB PO PRN (06:00)
[2020-08-21] MEDS ORDERED: METOCLOPRAMIDE 5 MG TAB PO ONE (06:00)
[2020-08-21] MEDS ORDERED: RIZATRIPTAN BENZOATE 10 MG TAB PO ONE (06:00)
[2020-08-21] MEDS ORDERED: ACETAMINOPHEN TAB 650MG DOSE (2X325MG) PO PRN (06:00)
[2020-08-21] MEDS ORDERED: traZODone 50 MG TAB PO PRN (06:00)
[2020-08-21] MEDS ORDERED: LORazepam 2 MG TAB PO PRN (06:00)
[2020-08-21] MEDS ORDERED: CYCLOBENZAPRINE 5MG TABLET PO PRN (06:00)
[2020-08-21] MEDS ORDERED: MOM 30ML SUSPENSION UDC PO PRN (06:00)
[2020-08-21] MEDS ORDERED: CYCLOBENZAPRINE 10MG TABLET PO PRN (06:30)
[2020-08-21] MEDS ORDERED: traZODone 100 MG TAB PO PRN (06:30)
[2020-08-21] MEDS ORDERED: THIAMINE 100 MG TAB PO SCH (07:00)
[2020-08-21] MEDS ORDERED: PANTOPRAZOLE 40MG TAB (PROTONIX) PO SCH (09:00)
[2020-08-21] MEDS ORDERED: FUROSEMIDE 40 MG TAB PO SCH (09:00)
[2020-08-21] MEDS ORDERED: FUROSEMIDE 20 MG TAB PO SCH (09:00)
[2020-08-21] MEDS ORDERED: GABAPENTIN 300 MG CAP PO SCH (09:00)
[2020-08-21] MEDS ORDERED: MULTIVITAMINS/MINERALS THERAP 1 TAB PO SCH (09:00)
[2020-08-21] MEDS ORDERED: FOLIC ACID 1 MG TAB PO SCH (09:00)
[2020-08-21] MEDS ORDERED: TOPIRAMATE (TopAMAX) 100 MG TAB PO SCH (09:00)
[2020-08-21 09:12] VITALS: BP 149/89
[2020-08-21] MEDS: SUCRALFATE 1 GM TAB PO SCH ×2 (09:26→12:11)
[2020-08-21] MEDS ORDERED: TRAZ1TAB12 PO (12:09)
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
== END 2020-08-21 14:55 | disposition home or self-care (01) | DRG 754 ==
LOC: M ED 21:44 → M ED INP 08-21 05:59 → M PSY 08-21 08:23
PROVIDERS: ADMIT Psychiatry & Neurology Psychiatry; ATTEND Psychiatry & Neurology Psychiatry
DX: F32.9 Major depressive disorder, single episode, unspecified (principal); F43.9 Reaction to severe stress, unspecified; G43.909 Migraine, unspecified, not intractable, without status migrainosus; K21.9 Gastro-esophageal reflux disease without esophagitis; M54.9 Dorsalgia, unspecified; Z91.411 Personal history of adult psychological abuse; Z91.410 Personal history of adult physical and sexual abuse; Z79.899 Other long term (current) drug therapy; Z88.0 Allergy status to penicillin; Z88.1 Allergy status to other antibiotic agents; Z88.2 Allergy status to sulfonamides

== ENCOUNTER → 2020-08-26 | Outpatient (CLI) | payer OTHER ==
[~2020-08-26] MED LIST changes: +CYCL5TAB PO; +IBUP-1730 PO; +METO5TAB2 PO; +PAMA50TA PO; +PROAAER10 INH; +RIZA5TAB PO; +SUCR1TAB56 PO; +TRAZ1TAB12 PO
[2020-08-26 17:11] LABS: BASO % 0.5 % (0.0-1.0); EOS % 0.7 % (0.0-3.0); HEMATOCRIT 35.7 % (36.0-47.0); HEMOGLOBIN 10.9 g/dl (12.0-15.5); LYMPH # 1.9 10^3/uL (1.5-5.0); LYMPH % 33.1 % (24.0-44.0); MEAN CORPUSCULAR HEMOGLOBIN 27.7 pg (27.0-33.0); MEAN CORPUSCULAR HGB CONC 30.5 g/dl (32.0-36.5); MEAN CORPUSCULAR VOLUME 90.6 fl (80.0-96.0); MONO # 0.4 10^3/uL (0.0-0.8); NEUTROPHILS # 3.3 10^3/uL (1.5-8.5); NEUTROPHILS % 58.2 % (36.0-66.0); PLATELET COUNT, AUTOMATED 234 10^3/uL (150-450); RED BLOOD COUNT 3.94 10^6/uL (4.00-5.40); WHITE BLOOD COUNT 5.7 10^3/uL (4.0-10.0)
[2020-08-26 17:37] LABS: BLOOD UREA NITROGEN 13 MG/DL (7-18); CALCIUM LEVEL 8.3 MG/DL (8.5-10.1); CARBON DIOXIDE LEVEL 22 MEQ/L (21-32); CHLORIDE LEVEL 112 MEQ/L (98-107); CREATININE FOR GFR 0.71 MG/DL (0.55-1.30); FERRITIN 8 NG/ML (8-252); FREE T4 0.95 NG/DL (0.76-1.46); GLOMERULAR FILTRATION RATE > 60.0 (>58); GLUCOSE, FASTING 91 MG/DL (70-100); IRON (FE) 41 UG/DL (50-170); RHEUMATOID FACTOR QUANT < 10.0 IU/ML (<15.0); SODIUM LEVEL 139 MEQ/L (136-145); TOTAL IRON BINDING CAPACITY 374 UG/DL (250-450)
[2020-08-28 14:09] LABS: ANTINUCLEAR ANTIBODIES DIRECT Negative (Negative)
== END ==
LOC: M LAB 16:34
PROVIDERS: ATTEND Physician Assistant
DX: R60.9 Edema, unspecified (principal); D64.9 Anemia, unspecified

== ENCOUNTER 2020-08-27 00:11 | Emergency (ER) | payer OTHER ==
[~2020-08-27] VITALS: Ht 170.2 cm; Wt 98.3 kg
[2020-08-27 00:12] VITALS: BP 135/82
== END 2020-08-27 00:49 | disposition left against medical advice (07) ==
LOC: M ED 00:11
DX: Z53.21 Procedure and treatment not carried out due to patient leaving prior to being seen by health care provider (principal)

== ENCOUNTER 2020-09-23 23:37 | Emergency (ER) | payer OTHER ==
[~2020-09-23] VITALS: Ht 170.2 cm; Wt 91.0 kg
[2020-09-24 01:12] VITALS: BP 122/73
[2020-09-24 02:03] LABS: HEMATOCRIT 41.5 % (36.0-47.0); HEMOGLOBIN 12.5 g/dl (12.0-15.5); MEAN CORPUSCULAR HEMOGLOBIN 27.7 pg (27.0-33.0); MEAN CORPUSCULAR HGB CONC 30.1 g/dl (32.0-36.5); MEAN CORPUSCULAR VOLUME 91.8 fl (80.0-96.0); PLATELET COUNT, AUTOMATED 246 10^3/uL (150-450); RED BLOOD COUNT 4.52 10^6/uL (4.00-5.40); WHITE BLOOD COUNT 6.7 10^3/uL (4.0-10.0)
[2020-09-24 02:31] LABS: AMPHETAMINES LEVEL URINE NEGATIVE (NEGATIVE); BARBITURATES URINE NEGATIVE (NEGATIVE); BENZODIAZEPINES URINE NEGATIVE (NEGATIVE); CANNABINOIDS URINE NEGATIVE (NEGATIVE); COCAINE METABOLITE URINE NEGATIVE (NEGATIVE); METHADONE URINE NEGATIVE (NEGATIVE); OPIATES URINE NEGATIVE (NEGATIVE); PHENCYCLIDINE URINE NEGATIVE (NEGATIVE)
[2020-09-24 02:32] LABS: HCG, SERUM QUALITATIVE NEGATIVE (NEGATIVE)
[2020-09-24 03:03] LABS: ACETAMINOPHEN LEVEL < 2.0 UG/ML (10.0-30.0); ALT/SGPT 25 U/L (12-78); BILIRUBIN,DIRECT < 0.1 MG/DL (0.0-0.2); BILIRUBIN,TOTAL 0.2 MG/DL (0.2-1.0); BLOOD UREA NITROGEN 10 MG/DL (7-18); CALCIUM LEVEL 8.9 MG/DL (8.5-10.1); CARBON DIOXIDE LEVEL 23 MEQ/L (21-32); CHLORIDE LEVEL 114 MEQ/L (98-107); CREATININE FOR GFR 0.69 MG/DL (0.55-1.30); ETHYL ALCOHOL (ETHANOL) 0.066 % (0.000-0.010); GLOMERULAR FILTRATION RATE > 60.0 (>58); GLUCOSE, FASTING 80 MG/DL (70-100); POTASSIUM SERUM 3.8 MEQ/L (3.5-5.1); SODIUM LEVEL 143 MEQ/L (136-145); TOTAL PROTEIN 7.5 GM/DL (6.4-8.2)
== END 2020-09-24 04:46 | disposition home or self-care (01) ==
LOC: M ED 23:37
DX: F43.0 Acute stress reaction (principal); G43.909 Migraine, unspecified, not intractable, without status migrainosus; K21.9 Gastro-esophageal reflux disease without esophagitis; G62.9 Polyneuropathy, unspecified; Z79.899 Other long term (current) drug therapy; Z88.0 Allergy status to penicillin; Z88.2 Allergy status to sulfonamides; Z88.1 Allergy status to other antibiotic agents
CPT/HCPCS: 80048; 80076; 80307; 84443; 84703; 85027; 99284; G0480

== ENCOUNTER → 2020-11-07 | Outpatient (REF) | payer OTHER ==
[~2020-11-07] MED LIST changes: +GABA-282 PO; -GABA-843 PO
[2020-11-07 17:00] LABS: BASO % 0.3 % (0.0-1.0); EOS # 0.1 10^3/uL (0.0-0.5); EOS % 1.9 % (0.0-3.0); HEMATOCRIT 40.4 % (36.0-47.0); HEMOGLOBIN 12.9 g/dl (12.0-15.5); LYMPH # 1.8 10^3/uL (1.5-5.0); LYMPH % 28.5 % (24.0-44.0); MEAN CORPUSCULAR HEMOGLOBIN 30.1 pg (27.0-33.0); MEAN CORPUSCULAR HGB CONC 31.9 g/dl (32.0-36.5); MEAN CORPUSCULAR VOLUME 94.4 fl (80.0-96.0); MONO # 0.5 10^3/uL (0.0-0.8); MONO % 7.9 % (2.0-8.0); NEUTROPHILS # 3.7 10^3/uL (1.5-8.5); NEUTROPHILS % 60.8 % (36.0-66.0); PLATELET COUNT, AUTOMATED 188 10^3/uL (150-450); RED BLOOD COUNT 4.28 10^6/uL (4.00-5.40); WHITE BLOOD COUNT 6.2 10^3/uL (4.0-10.0)
[2020-11-07 17:31] LABS: ALBUMIN 3.6 GM/DL (3.2-5.2); ALT/SGPT 18 U/L (12-78); BLOOD UREA NITROGEN 15 MG/DL (7-18); CALCIUM LEVEL 8.8 MG/DL (8.5-10.1); CARBON DIOXIDE LEVEL 23 MEQ/L (21-32); CHLORIDE LEVEL 111 MEQ/L (98-107); FERRITIN 14 NG/ML (8-252); GLOMERULAR FILTRATION RATE > 60.0 (>58); GLUCOSE, FASTING 85 MG/DL (70-100); IRON (FE) 28 UG/DL (50-170); PERCENT SATURATION 8.6 % (13.2-45.0); POTASSIUM SERUM 4.1 MEQ/L (3.5-5.1); SODIUM LEVEL 142 MEQ/L (136-145); TOTAL IRON BINDING CAPACITY 324 UG/DL (250-450); TOTAL PROTEIN 6.8 GM/DL (6.4-8.2)
[2020-11-07 18:57] LABS: BILIRUBIN,TOTAL < 0.1 MG/DL (0.2-1.0)
== END ==
LOC: M LAB REF 16:13
PROVIDERS: ATTEND Physician Assistant
DX: D50.9 Iron deficiency anemia, unspecified (principal)

== ENCOUNTER → 2020-11-27 | Outpatient (CLI) | payer OTHER | LOC: M WUC 14:53 | PROVIDERS: ATTEND Internal Medicine Cardiovascular Disease | DX: R06.02 Shortness of breath (principal) ==

== ENCOUNTER → 2020-12-16 | Outpatient (CLI) | payer OTHER ==
[~2020-12-16] MED LIST changes: +ISOVUE-370 76% 100ML VIAL As Ordered ONE
--- NOTE | 2020-12-17 05:53 | REP ---
INDICATION: SOB COMPARISON: 02/10/2020 TECHNIQUE: Axial contrast enhanced images from the thoracic inlet to the upper abdomen using pulmonary embolus technique with multiplanar re-formations. 75 ml Isovue 370 intravenous contrast material administered without complication. This CT examination was performed using the following dose reduction techniques: Automated exposure control, adjustment of mA and/or kv according to the patient's size, and use of iterative reconstruction technique. FINDINGS: Satisfactory enhancement of the pulmonary vasculature is achieved and no filling defects are identified to suggest pulmonary embolus. Further evaluation of the mediastinum demonstrates normal thoracic aorta, heart and pericardium. The bilateral lung hunt are well aerated and clear without consolidation pleural effusion or pneumothorax. Tracheobronchial tree is patent. No nodule or mass lesion is identified. No adenopathy noted. Surrounding musculoskeletal structures intact incidental chronic elevation to the right hemidiaphragm again noted IMPRESSION: No evidence for pulmonary embolus. No acute mediastinal or pleural parenchymal process. <Electronically signed by Drew Ingram > 12/17/20 0529
== END ==
LOC: M RAD 18:18
PROVIDERS: ATTEND Internal Medicine Cardiovascular Disease
DX: R06.02 Shortness of breath (principal); R79.1 Abnormal coagulation profile; R07.9 Chest pain, unspecified
CPT/HCPCS: 71275; Q9967

== ENCOUNTER → 2021-01-27 | Outpatient (CLI) | payer OTHER ==
[~2021-01-27] MED LIST changes: -ISOVUE-370 76% 100ML VIAL As Ordered ONE
--- NOTE | 2021-01-27 09:55 | PFTRPT ---
Height: 67.50 Inches Weight: 189.00 Lbs BSA: 1.98 Diagnosis: J45.40 DATE: 01/27/2021 ORDERING PHYSICIAN: OLGA LIDIA Mathews Pre and post bronchodilator studies have excellent technical quality. Some difficulty with the required maneuver is noted. Forced vital capacity is normal. FEV1 is in proportion. Obstructive index is therefore normal. Expiratory limit of the flow-volume loop is normal. No significant bronchodilator response is identified. Total lung capacity is normal. Residual volume is in proportion. Diffusing capacity is normal and remains normal when corrected for alveolar volume. No hemoglobin available for correction. Airway resistance and conductance are normal. IMPRESSION: Essentially normal study. MTDD
== END ==
LOC: M CARPUL 09:15
PROVIDERS: ATTEND Physician Assistant
DX: J45.40 Moderate persistent asthma, uncomplicated (principal)

== ENCOUNTER 2021-06-02 03:30 | Emergency (ER) | payer OTHER ==
[~2021-06-02] VITALS: Ht 170.2 cm; Wt 84.1 kg
[~2021-06-02 03:30] MED LIST changes: +OMEP40CA4 PO; -OMEP40CA97 PO; -RIZA5TAB; -RIZA5TAB PO; +RIZA5TAB2; +RIZA5TAB2 PO
[2021-06-02 03:53] VITALS: BP 118/78
[2021-06-02 04:12] LABS: HEMATOCRIT 42.5 % (36.0-47.0); HEMOGLOBIN 14.1 g/dl (12.0-15.5); MEAN CORPUSCULAR HEMOGLOBIN 32.1 pg (27.0-33.0); MEAN CORPUSCULAR HGB CONC 33.2 g/dl (32.0-36.5); MEAN CORPUSCULAR VOLUME 96.8 fl (80.0-96.0); PLATELET COUNT, AUTOMATED 198 10^3/uL (150-450); RED BLOOD COUNT 4.39 10^6/uL (4.00-5.40); WHITE BLOOD COUNT 7.8 10^3/uL (4.0-10.0)
[2021-06-02 04:38] LABS: AMPHETAMINES LEVEL URINE NEGATIVE (NEGATIVE); BARBITURATES URINE NEGATIVE (NEGATIVE); BENZODIAZEPINES URINE NEGATIVE (NEGATIVE); CANNABINOIDS URINE NEGATIVE (NEGATIVE); COCAINE METABOLITE URINE NEGATIVE (NEGATIVE); METHADONE URINE NEGATIVE (NEGATIVE); OPIATES URINE NEGATIVE (NEGATIVE); PHENCYCLIDINE URINE NEGATIVE (NEGATIVE)
[2021-06-02 04:41] LABS: HCG, SERUM QUALITATIVE NEGATIVE (NEGATIVE)
[2021-06-02 04:50] LABS: ACETAMINOPHEN LEVEL < 2.0 UG/ML (10.0-30.0); ALT/SGPT 26 U/L (12-78); BILIRUBIN,DIRECT < 0.1 MG/DL (0.0-0.2); BILIRUBIN,TOTAL 0.2 MG/DL (0.2-1.0); BLOOD UREA NITROGEN 19 MG/DL (7-18); CALCIUM LEVEL 8.7 MG/DL (8.5-10.1); CARBON DIOXIDE LEVEL 25 MEQ/L (21-32); CHLORIDE LEVEL 106 MEQ/L (98-107); CREATININE FOR GFR 0.66 MG/DL (0.55-1.30); ETHYL ALCOHOL (ETHANOL) 0.057 % (0.000-0.010); GLOMERULAR FILTRATION RATE > 60.0 (>58); GLUCOSE, FASTING 90 MG/DL (70-100); POTASSIUM SERUM 3.6 MEQ/L (3.5-5.1); SALICYLATE LEVEL < 1.7 MG/DL (5.0-30.0); SODIUM LEVEL 141 MEQ/L (136-145); TOTAL PROTEIN 7.5 GM/DL (6.4-8.2)
[2021-06-02] MEDS ORDERED: FLUO20CA22 PO (08:44)
[2021-06-02] MEDS ORDERED: SUCRALFATE 1 GM TAB PO ONE (08:50)
[2021-06-02] MEDS ORDERED: FLUoxetine 20 MG CAP PO ONE (08:50)
[2021-06-02] MEDS ORDERED: FUROSEMIDE 20 MG TAB PO ONE (08:50)
[2021-06-02] MEDS ORDERED: GABAPENTIN 300 MG CAP PO ONE (08:50)
[2021-06-02] MEDS ORDERED: PANTOPRAZOLE 40MG TAB (PROTONIX) PO ONE (08:50)
[2021-06-02] MEDS ORDERED: TOPIRAMATE (TopAMAX) 100 MG TAB PO ONE (08:50)
[2021-06-02] MEDS ORDERED: CYCLOBENZAPRINE 5MG TABLET PO ONE (09:00)
[2021-06-02] MEDS ORDERED: GABA600T4 PO (09:03)
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
== END 2021-06-02 11:00 | disposition home or self-care (01) ==
LOC: M ED 03:30
DX: F43.20 Adjustment disorder, unspecified (principal); F33.9 Major depressive disorder, recurrent, unspecified; Z79.899 Other long term (current) drug therapy; Z88.0 Allergy status to penicillin; Z88.1 Allergy status to other antibiotic agents; Z88.2 Allergy status to sulfonamides; Z88.8 Allergy status to other drugs, medicaments and biological substances; F17.210 Nicotine dependence, cigarettes, uncomplicated

== ENCOUNTER 2021-06-30 12:42 | Outpatient (CLI) | payer OTHER ==
[~2021-06-30 12:42] MED LIST changes: +ALBUTEROL 90 MCG/ACT 8GM HFA INHALER INH PRN; +ALBUTEROL SULFATE 2.5 MG/0.5 ML INH NEB SOLN INH PRN; +EPINEPHrine INJ 1 MG/ML 1ML AMP IM PRN; +NS 1,000 ML IV SCH; +diphenhydrAMINE 50MG/ML VIAL (J1200) IV PRN; +methylPREDNISolone 125MG 2ML VIAL IV PRN
[2021-06-30] MEDS ORDERED: CASIRIVIMAB/IMDEVIMAB 1,200 MG in NS 250 ML IV ONE (13:25)
[2021-06-30 13:49] VITALS: BP 111/59
[2021-06-30 14:20] VITALS: BP 110/56
[2021-06-30 14:55] VITALS: BP 110/63
[2021-06-30 15:30] VITALS: BP 118/69
[2021-06-30 16:30] VITALS: BP 132/64
== END 2021-06-30 16:32 | disposition home or self-care (01) ==
LOC: M OPCLI4PR 12:42 → M MS4PR 12:42 → M OPCLI4PR 16:32
PROVIDERS: ATTEND Pediatrics
DX: U07.1 COVID-19 (principal); Z88.0 Allergy status to penicillin; Z88.2 Allergy status to sulfonamides

== ENCOUNTER 2021-10-27 11:23 | Emergency (ER) | payer OTHER ==
[~2021-10-27] VITALS: Ht 170.2 cm; Wt 75.0 kg
[~2021-10-27 11:23] MED LIST changes: -ALBUTEROL 90 MCG/ACT 8GM HFA INHALER INH PRN; -ALBUTEROL SULFATE 2.5 MG/0.5 ML INH NEB SOLN INH PRN; -EPINEPHrine INJ 1 MG/ML 1ML AMP IM PRN; -IBUP200T45 PO; +IBUP200T46 PO; -NS 1,000 ML IV SCH; -diphenhydrAMINE 50MG/ML VIAL (J1200) IV PRN; -methylPREDNISolone 125MG 2ML VIAL IV PRN
[2021-10-27] MEDS ORDERED: NORCO, ANEXSIA 5/325MG TABLET (HYDROcodone/ACETAMINOPHEN) PO ONE (12:35)
[2021-10-27] MEDS ORDERED: CYCL7.5T32 PO (13:01)
[2021-10-27] MEDS ORDERED: IBUP80TA PO (13:01)
[2021-10-27 13:18] VITALS: BP 127/75
== END 2021-10-27 13:21 | disposition home or self-care (01) ==
LOC: M ED 11:23
DX: S16.1XXA Strain of muscle, fascia and tendon at neck level, initial encounter (principal); Y04.8XXA Assault by other bodily force, initial encounter; Y92.89 Other specified places as the place of occurrence of the external cause; J45.909 Unspecified asthma, uncomplicated; K21.9 Gastro-esophageal reflux disease without esophagitis; R56.9 Unspecified convulsions; Z79.899 Other long term (current) drug therapy; Z88.0 Allergy status to penicillin; Z88.1 Allergy status to other antibiotic agents; Z88.2 Allergy status to sulfonamides

== ENCOUNTER 2022-01-19 21:50 | Emergency (ER) | payer OTHER ==
[~2022-01-19] VITALS: Ht 170.2 cm; Wt 88.8 kg
[~2022-01-19 21:50] MED LIST changes: +CYCL7.5T32 PO
[2022-01-19 21:52] VITALS: BP 123/82
== END 2022-01-19 23:10 | disposition left against medical advice (07) ==
LOC: M ED 21:50
DX: Z53.29 Procedure and treatment not carried out because of patient's decision for other reasons (principal)

== ENCOUNTER 2022-02-01 21:52 | Emergency (ER) | payer OTHER ==
[~2022-02-01] VITALS: Ht 170.2 cm; Wt 84.1 kg
[2022-02-01 21:52] VITALS: BP 141/95
== END 2022-02-02 03:04 | disposition left against medical advice (07) ==
LOC: M ED 21:52
DX: Z53.21 Procedure and treatment not carried out due to patient leaving prior to being seen by health care provider (principal)

== ENCOUNTER → 2022-02-20 | Outpatient (CLI) | payer OTHER ==
[~2022-02-20] MED LIST changes: +ALBU2.5V10 INH; -ALBU83IN INH
== END ==
LOC: M WUC 13:20
DX: R05.9 Cough, unspecified (principal)

== ENCOUNTER → 2022-03-10 | Outpatient (REF) | payer OTHER | LOC: M LAB REF 19:21 | PROVIDERS: ATTEND Student in an Organized Health Care Education/Training Program | DX: R30.0 Dysuria (principal) ==

== ENCOUNTER → 2022-11-30 | Outpatient (REF) | payer OTHER ==
[~2022-11-30] MED LIST changes: -DOXY-350 PO; +DOXY-444 PO
[2022-11-30 14:33] LABS: BASO % 0.5 % (0.0-1.0); EOS # 0.2 10^3/uL (0.0-0.5); EOS % 3.5 % (0.0-3.0); HEMATOCRIT 40.5 % (36.0-47.0); LYMPH # 2.6 10^3/uL (1.5-5.0); LYMPH % 41.8 % (24.0-44.0); MEAN CORPUSCULAR HEMOGLOBIN 32.7 pg (27.0-33.0); MEAN CORPUSCULAR HGB CONC 32.1 g/dl (32.0-36.5); MEAN CORPUSCULAR VOLUME 101.8 fl (80.0-96.0); MONO # 0.5 10^3/uL (0.0-0.8); MONO % 7.7 % (2.0-8.0); NEUTROPHILS # 2.9 10^3/uL (1.5-8.5); NEUTROPHILS % 46.2 % (36.0-66.0); PLATELET COUNT, AUTOMATED 169 10^3/uL (150-450); RED BLOOD COUNT 3.98 10^6/uL (4.00-5.40); WHITE BLOOD COUNT 6.2 10^3/uL (4.0-10.0)
[2022-11-30 14:42] LABS: ALBUMIN 3.5 G/DL (3.2-5.2); ALKALINE PHOSPHATASE 60 U/L (46-116); ALT/SGPT 16 U/L (7.0-40); AST/SGOT 17 U/L (<34); BILIRUBIN,TOTAL 0.2 MG/DL (0.3-1.2); BLOOD UREA NITROGEN 16 MG/DL (9-23); CALCIUM LEVEL 8.9 MG/DL (8.5-10.1); CARBON DIOXIDE LEVEL 26 MMOL/L (20-31); CHLORIDE LEVEL 111 MMOL/L (98-107); CHOLESTEROL LEVEL 191 MG/DL (<200); CREATININE FOR GFR 0.83 MG/DL (0.55-1.30); FREE T4 0.83 NG/DL (0.89-1.76); GLOMERULAR FILTRATION RATE > 60.0 (>58); GLUCOSE, FASTING 94 MG/DL (60-100); HDL CHOLESTEROL 61.5 MG/DL (>40); LDL CHOLESTEROL 89.9 MG/DL (<100); MAGNESIUM LEVEL 2.1 MG/DL (1.8-2.4); NON-HDL-C 129.5 MG/DL; SODIUM LEVEL 144 MMOL/L (136-145); TRIGLYCERIDES LEVEL 198 MG/DL (<150)
== END ==
LOC: M LAB REF 12:00
PROVIDERS: ATTEND Nurse Practitioner Family
DX: Z13.228 Encounter for screening for other metabolic disorders (principal)

== ENCOUNTER → 2022-12-03 | Outpatient (CLI) | payer OTHER ==
[2022-12-03 11:41] LABS: BASO % 0.6 % (0.0-1.0); EOS # 0.2 10^3/uL (0.0-0.5); EOS % 3.5 % (0.0-3.0); HEMATOCRIT 40.3 % (36.0-47.0); HEMOGLOBIN 13.4 g/dl (12.0-15.5); LYMPH % 38.3 % (24.0-44.0); MEAN CORPUSCULAR HGB CONC 33.3 g/dl (32.0-36.5); MEAN CORPUSCULAR VOLUME 99.3 fl (80.0-96.0); MONO # 0.5 10^3/uL (0.0-0.8); MONO % 9.4 % (2.0-8.0); NEUTROPHILS # 2.5 10^3/uL (1.5-8.5); NEUTROPHILS % 47.6 % (36.0-66.0); PLATELET COUNT, AUTOMATED 183 10^3/uL (150-450); RED BLOOD COUNT 4.06 10^6/uL (4.00-5.40); WHITE BLOOD COUNT 5.2 10^3/uL (4.0-10.0)
[2022-12-03 12:10] LABS: BLOOD UREA NITROGEN 13 MG/DL (9-23); CALCIUM LEVEL 8.9 MG/DL (8.5-10.1); CARBON DIOXIDE LEVEL 28 MMOL/L (20-31); CHLORIDE LEVEL 108 MMOL/L (98-107); CREATININE FOR GFR 0.79 MG/DL (0.55-1.30); GLOMERULAR FILTRATION RATE > 60.0 (>58); GLUCOSE, FASTING 71 MG/DL (60-100); POTASSIUM SERUM 4.1 MMOL/L (3.5-5.1); SODIUM LEVEL 143 MMOL/L (136-145)
== END ==
LOC: M EKG 10:48
PROVIDERS: ATTEND Podiatrist
DX: M20.11 Hallux valgus (acquired), right foot (principal)

== ENCOUNTER → 2022-12-14 | Outpatient (CLI) | payer OTHER ==
[~2022-12-14] MED LIST changes: +BUPR75TA5 PO
== END ==
LOC: M LABSMTC 11:43
PROVIDERS: ATTEND Anesthesiology
DX: Z11.52 Encounter for screening for COVID-19 (principal)

== ENCOUNTER 2022-12-18 06:12 | Day surgery (SDC) | payer OTHER ==
[~2022-12-18] VITALS: Ht 170.2 cm; Wt 90.7 kg
[~2022-12-18 06:12] MED LIST changes: +VANCOMYCIN HCL 1,000 MG, VIAL MATE ADAPTER 1 EACH in D5W 250 ML IV ONE
[2022-12-18] MEDS ORDERED: LR 1,000 ML IV SCH (06:20)
[2022-12-18] MEDS ORDERED: fentaNYL 100 MCG/2 ML INJECTION As Ordered ONE (07:14)
[2022-12-18] MEDS ORDERED: MIDAZOLAM INJ 2MG/2ML VIAL As Ordered ONE (07:14)
[2022-12-18] MEDS ORDERED: LIDOCAINE 2% 100MG/5ML SDV (FOR ANES.) As Ordered ONE (07:14)
[2022-12-18] MEDS ORDERED: propofoL 200 MG/20 ML VIAL As Ordered ONE ×3 (07:14→09:18)
[2022-12-18] MEDS ORDERED: ONDANSETRON 4MG 2ML VIAL As Ordered ONE (07:15)
[2022-12-18] MEDS ORDERED: GENTAMICIN SULF 80MG/2ML VIAL As Ordered ONE (07:19)
[2022-12-18] MEDS ORDERED: LIDOCAINE 2% MDV 20ML VIAL As Ordered ONE (07:19)
[2022-12-18] MEDS ORDERED: BUPIVACAINE HCL 0.5% 30ML VIAL As Ordered ONE (07:20)
[2022-12-18] MEDS ORDERED: ACETAMINOPHEN 1000MG 100ML IV BAG As Ordered ONE (08:04)
[2022-12-18] MEDS ORDERED: KETOROLAC 60MG 2ML VIAL As Ordered ONE (10:17)
[2022-12-18 13:05] VITALS: BP 128/80
== END 2022-12-18 13:05 | disposition home or self-care (01) ==
LOC: M SDC 06:12
PROVIDERS: ATTEND Podiatrist
DX: M20.11 Hallux valgus (acquired), right foot (principal); M20.41 Other hammer toe(s) (acquired), right foot; Z88.0 Allergy status to penicillin; Z88.2 Allergy status to sulfonamides; Z79.899 Other long term (current) drug therapy; F32.A Depression, unspecified; F41.9 Anxiety disorder, unspecified; K21.9 Gastro-esophageal reflux disease without esophagitis
CPT/HCPCS: 28285; 28297; 73630; 88300; C1713; J0131; J1100; J1580; J1885; J2250; J2405; J3010

== ENCOUNTER → 2023-02-08 | Outpatient (CLI) | payer OTHER ==
[~2023-02-08] MED LIST changes: -VANCOMYCIN HCL 1,000 MG, VIAL MATE ADAPTER 1 EACH in D5W 250 ML IV ONE
== END ==
LOC: M WHC 15:21
PROVIDERS: ATTEND Nurse Practitioner Family
DX: Z12.31 Encounter for screening mammogram for malignant neoplasm of breast (principal)

== ENCOUNTER → 2023-02-08 | Outpatient (REF) | payer OTHER | LOC: M SFHCWAGY 10:22 | PROVIDERS: ATTEND Nurse Practitioner Family | DX: Z12.4 Encounter for screening for malignant neoplasm of cervix (principal); R87.610 Atypical squamous cells of undetermined significance on cytologic smear of cervix (ASC-US); B37.31 Acute candidiasis of vulva and vagina ==

== ENCOUNTER → 2023-02-23 | Outpatient (CLI) | payer OTHER | LOC: M RAD 16:10 | PROVIDERS: ATTEND Nurse Practitioner Family | DX: N95.0 Postmenopausal bleeding (principal); N83.201 Unspecified ovarian cyst, right side; N85.4 Malposition of uterus ==

== ENCOUNTER → 2023-03-11 | Outpatient (CLI) | payer OTHER ==
[2023-03-11 11:00] LABS: BASO # 0.1 10^3/uL (0.0-0.2); BASO % 0.7 % (0.0-1.0); EOS # 0.3 10^3/uL (0.0-0.5); EOS % 3.8 % (0.0-3.0); HEMATOCRIT 37.1 % (36.0-47.0); LYMPH % 28.9 % (24.0-44.0); MEAN CORPUSCULAR HGB CONC 32.3 g/dl (32.0-36.5); MEAN CORPUSCULAR VOLUME 98.9 fl (80.0-96.0); MONO # 0.6 10^3/uL (0.0-0.8); MONO % 9.1 % (2.0-8.0); NEUTROPHILS # 3.9 10^3/uL (1.5-8.5); NEUTROPHILS % 57.2 % (36.0-66.0); PLATELET COUNT, AUTOMATED 209 10^3/uL (150-450); RED BLOOD COUNT 3.75 10^6/uL (4.00-5.40); WHITE BLOOD COUNT 6.8 10^3/uL (4.0-10.0)
[2023-03-11 11:19] LABS: FOLLICLE STIMULATING HORMONE 59.5 mIU/ML; THYROID STIMULATING HORMONE 3.711 uIU/ML (0.55-4.78)
[2023-03-11 11:20] LABS: LUTEINIZING HORMONE 26.5 mIU/ML; PROLACTIN 19.61 NG/ML
[2023-03-11 11:21] LABS: ESTRADIOL 27.3 PG/ML
[2023-03-11 11:23] LABS: ALBUMIN 3.7 G/DL (3.2-5.2); ALKALINE PHOSPHATASE 66 U/L (46-116); ALT/SGPT 12 U/L (7.0-40); AST/SGOT 18 U/L (<34); BILIRUBIN,TOTAL 0.2 MG/DL (0.3-1.2); BLOOD UREA NITROGEN 23 MG/DL (9-23); CALCIUM LEVEL 8.6 MG/DL (8.5-10.1); CARBON DIOXIDE LEVEL 25 MMOL/L (20-31); CHLORIDE LEVEL 109 MMOL/L (98-107); CREATININE FOR GFR 0.92 MG/DL (0.55-1.30); GLOMERULAR FILTRATION RATE > 60.0 (>58); GLUCOSE, FASTING 86 MG/DL (60-100); PROGESTERONE 0.21 NG/ML; SODIUM LEVEL 141 MMOL/L (136-145)
== END ==
LOC: M PLALAB 08:08
PROVIDERS: ATTEND Nurse Practitioner Family
DX: N95.0 Postmenopausal bleeding (principal); R53.83 Other fatigue

== ENCOUNTER → 2023-07-12 | Outpatient (REF) | payer OTHER ==
[2023-07-13 01:11] LABS: CHOLESTEROL RISK RATIO 2.96 (<5); HDL CHOLESTEROL 61.1 MG/DL (>40); LDL CHOLESTEROL 94.7 MG/DL (<100); NON-HDL-C 119.9 MG/DL
== END ==
LOC: M LAB REF 12:21
PROVIDERS: ATTEND Nurse Practitioner Family
DX: Z13.220 Encounter for screening for lipoid disorders (principal)

== ENCOUNTER → 2023-07-19 | Outpatient (CLI) | payer OTHER | LOC: M RAD 17:16 | PROVIDERS: ATTEND Student in an Organized Health Care Education/Training Program | DX: M19.071 Primary osteoarthritis, right ankle and foot (principal); M77.31 Calcaneal spur, right foot ==

== ENCOUNTER 2023-07-27 23:14 | Emergency (ER) | payer OTHER ==
[2023-07-27 23:28] VITALS: TEMP 96.8
[2023-07-28] MEDS ORDERED: LIDOCAINE W/EPINEPHRINE 1% 20ML VIAL SC ONE (01:05)
[2023-07-28] MEDS ORDERED: BOOSTRIX VACCINE (TETANUS/DIPHTH/ACEL. PERTUSSIS) 0.5ML SYR IM ONE (01:05)
[2023-07-28] MEDS ORDERED: ACETAMINOPHEN TAB 650MG DOSE (2X325MG) PO ONE (03:05)
[2023-07-28 03:12] VITALS: BP 110/63; O2SAT 97
== END 2023-07-28 06:28 | disposition home or self-care (01) ==
LOC: M ED 23:14
DX: S01.91XA Laceration without foreign body of unspecified part of head, initial encounter (principal); F10.120 Alcohol abuse with intoxication, uncomplicated; Y04.0XXA Assault by unarmed brawl or fight, initial encounter; Y92.410 Unspecified street and highway as the place of occurrence of the external cause; Y93.89 Activity, other specified; M79.604 Pain in right leg; G89.29 Other chronic pain; F99 Mental disorder, not otherwise specified

== ENCOUNTER 2023-09-18 20:30 | Emergency (ER) | payer OTHER ==
[~2023-09-18] VITALS: Ht 172.7 cm; Wt 79.0 kg
[2023-09-18] MEDS ORDERED: LIDOCAINE W/EPINEPHRINE 1% 20ML VIAL SC ONE (21:00)
[2023-09-18] MEDS ORDERED: DOXY-443 PO (22:42)
[2023-09-18] MEDS ORDERED: DOXYCYCLINE HYCLATE 100MG TABLET PO ONE (22:45)
[2023-09-18 22:50] VITALS: BP 126/77; TEMP 97.9; O2SAT 99
== END 2023-09-18 23:21 | disposition home or self-care (01) ==
LOC: M ED 20:30 → EDBD 20:30 → M ED 23:21
DX: S71.111A Laceration without foreign body, right thigh, initial encounter (principal); Y00.XXXA Assault by blunt object, initial encounter; Z88.2 Allergy status to sulfonamides; Z88.0 Allergy status to penicillin; Y93.89 Activity, other specified; Y99.9 Unspecified external cause status

== ENCOUNTER 2023-09-27 13:18 | Emergency (ER) | payer OTHER ==
[~2023-09-27] VITALS: Ht 167.6 cm; Wt 70.5 kg
[~2023-09-27 13:18] MED LIST changes: +DOXY-443 PO
[2023-09-27 14:03] LABS: BASO % 0.5 % (0.0-1.0); EOS # 0.1 10^3/uL (0.0-0.5); EOS % 1.3 % (0.0-3.0); HEMATOCRIT 32.8 % (36.0-47.0); HEMOGLOBIN 10.8 g/dl (12.0-15.5); LYMPH # 0.4 10^3/uL (1.5-5.0); MEAN CORPUSCULAR HEMOGLOBIN 32.1 pg (27.0-33.0); MEAN CORPUSCULAR HGB CONC 32.9 g/dl (32.0-36.5); MEAN CORPUSCULAR VOLUME 97.6 fl (80.0-96.0); MONO # 0.4 10^3/uL (0.0-0.8); NEUTROPHILS # 5.3 10^3/uL (1.5-8.5); NEUTROPHILS % 83.9 % (36.0-66.0); PLATELET COUNT, AUTOMATED 215 10^3/uL (150-450); RED BLOOD COUNT 3.36 10^6/uL (4.00-5.40); WHITE BLOOD COUNT 6.3 10^3/uL (4.0-10.0)
[2023-09-27 14:23] LABS: AMPHETAMINES LEVEL URINE NEGATIVE (NEGATIVE); BARBITURATES URINE NEGATIVE (NEGATIVE); BENZODIAZEPINES URINE NEGATIVE (NEGATIVE); COCAINE METABOLITE URINE NEGATIVE (NEGATIVE); METHADONE URINE NEGATIVE (NEGATIVE); OPIATES URINE NEGATIVE (NEGATIVE); PHENCYCLIDINE URINE NEGATIVE (NEGATIVE)
[2023-09-27 14:25] LABS: CANNABINOIDS URINE POSITIVE (NEGATIVE)
[2023-09-27 14:25] LABS: ETHYL ALCOHOL (ETHANOL) < 0.003 % (0.000-0.010)
[2023-09-27 14:27] LABS: ALBUMIN 3.4 G/DL (3.2-5.2); ALKALINE PHOSPHATASE 66 U/L (46-116); ALT/SGPT 16 U/L (7.0-40); AST/SGOT 15 U/L (<34); BILIRUBIN,DIRECT < 0.1 MG/DL (<0.4); BILIRUBIN,TOTAL 0.2 MG/DL (0.3-1.2); BLOOD UREA NITROGEN 10 MG/DL (9-23); CALCIUM LEVEL 8.6 MG/DL (8.5-10.1); CARBON DIOXIDE LEVEL 27 MMOL/L (20-31); CHLORIDE LEVEL 112 MMOL/L (98-107); CREATININE FOR GFR 0.75 MG/DL (0.55-1.30); GLOMERULAR FILTRATION RATE > 60.0 (>58); GLUCOSE, FASTING 86 MG/DL (60-100); POTASSIUM SERUM 3.6 MMOL/L (3.5-5.1); SODIUM LEVEL 145 MMOL/L (136-145); TOTAL PROTEIN 5.9 G/DL (5.7-8.2)
[2023-09-27 14:29] LABS: THYROID STIMULATING HORMONE 3.716 uIU/ML (0.55-4.78)
[2023-09-27 14:58] LABS: RSV AMPLIFICATION NEGATIVE (NEGATIVE)
[2023-09-27] MEDS ORDERED: FLUO40CA PO (15:37)
[2023-09-27] MEDS ORDERED: RIZA10TA58 PO (15:37)
[2023-09-27] MEDS ORDERED: BUPR1TAB52 (15:37)
[2023-09-27] MEDS ORDERED: AMPH1CAP16 PO (15:37)
[2023-09-27] MEDS ORDERED: CLON0.5T2 (15:37)
[2023-09-27 16:13] LABS: MAGNESIUM LEVEL 2.2 MG/DL (1.8-2.4)
[2023-09-27] MEDS ORDERED: CLINDAMYCIN 900 MG in IV 1 EA IV ONE (16:50)
[2023-09-27] MEDS ORDERED: NS 1,000 ML IV ONE (17:30)
[2023-09-27] MEDS ORDERED: MED REC IN PROGRESS XX SCH (18:30)
[2023-09-27 20:13] VITALS: BP 116/58; TEMP 99.7; O2SAT 98
[2023-09-27] MEDS ORDERED: DEXT25CP PO (20:28)
[2023-09-27] MEDS ORDERED: ALBU8.5H INH (20:28)
[2023-09-27] MEDS ORDERED: TRAZ300T2 PO (20:31)
[2023-09-27] MEDS ORDERED: CYCL-707 PO (20:35)
[2023-09-27] MEDS ORDERED: AMPH1CAP5 PO (20:38)
[2023-09-27] MEDS ORDERED: HOME MED LIST COMPLETE! XX SCH (20:40)
== END 2023-09-27 21:06 | disposition left against medical advice (07) ==
LOC: M ED 13:18
DX: R45.851 Suicidal ideations (principal); R41.82 Altered mental status, unspecified; T76.91XA Unspecified adult maltreatment, suspected, initial encounter; J09.X2 Influenza due to identified novel influenza A virus with other respiratory manifestations; Z53.9 Procedure and treatment not carried out, unspecified reason; S71.111S Laceration without foreign body, right thigh, sequela; X58.XXXS Exposure to other specified factors, sequela; Y92.9 Unspecified place or not applicable; Y93.9 Activity, unspecified; Y99.9 Unspecified external cause status; F41.9 Anxiety disorder, unspecified; F32.A Depression, unspecified; Z87.440 Personal history of urinary (tract) infections; K21.9 Gastro-esophageal reflux disease without esophagitis; M54.50 Low back pain, unspecified; F17.200 Nicotine dependence, unspecified, uncomplicated; F19.10 Other psychoactive substance abuse, uncomplicated; F10.10 Alcohol abuse, uncomplicated; I10 Essential (primary) hypertension; F90.9 Attention-deficit hyperactivity disorder, unspecified type; Z91.199 Patient's noncompliance with other medical treatment and regimen due to unspecified reason; Z79.899 Other long term (current) drug therapy; Z88.0 Allergy status to penicillin; Z88.2 Allergy status to sulfonamides; Z88.1 Allergy status to other antibiotic agents
CPT/HCPCS: 70450; 71045; 72125; 73552; 76882; 80047; 80048; 80076; 80143; 80307; 81001; 82077; 82140; 83605; 83735; 84443; 85025; 87040; 87070; 87077; 87631; 93005; 93041; 96374; 99285; J0737

== ENCOUNTER 2023-10-04 16:27 | Emergency (ER) | payer OTHER ==
[~2023-10-04] VITALS: Ht 170.2 cm; Wt 78.0 kg
[~2023-10-04 16:27] MED LIST changes: +ALBU8.5H INH; +AMPH1CAP16 PO; +AMPH1CAP5 PO; +BUPR1TAB52; +CLON0.5T2; +DEXT25CP PO; +FLUO40CA PO; +RIZA10TA58 PO; +TRAZ300T2 PO
[2023-10-04 16:28] VITALS: BP 101/62; TEMP 97.2; O2SAT 100
== END 2023-10-04 17:12 | disposition left against medical advice (07) ==
LOC: M ED 16:27
DX: Z53.21 Procedure and treatment not carried out due to patient leaving prior to being seen by health care provider (principal)

== ENCOUNTER → 2023-12-02 | Outpatient (CLI) | payer OTHER ==
[2023-12-02 14:45] LABS: BASO % 0.6 % (0.0-1.0); EOS # 0.1 10^3/uL (0.0-0.5); EOS % 1.6 % (0.0-3.0); HEMATOCRIT 41.4 % (36.0-47.0); HEMOGLOBIN 13.5 g/dl (12.0-15.5); LYMPH # 1.9 10^3/uL (1.5-5.0); LYMPH % 27.8 % (24.0-44.0); MEAN CORPUSCULAR HEMOGLOBIN 31.8 pg (27.0-33.0); MEAN CORPUSCULAR HGB CONC 32.6 g/dl (32.0-36.5); MEAN CORPUSCULAR VOLUME 97.6 fl (80.0-96.0); MONO # 0.5 10^3/uL (0.0-0.8); MONO % 7.6 % (2.0-8.0); NEUTROPHILS # 4.2 10^3/uL (1.5-8.5); NEUTROPHILS % 62.1 % (36.0-66.0); PLATELET COUNT, AUTOMATED 231 10^3/uL (150-450); RED BLOOD COUNT 4.24 10^6/uL (4.00-5.40); WHITE BLOOD COUNT 6.7 10^3/uL (4.0-10.0)
[2023-12-02 14:52] LABS: ERYTHROCYTE SEDIMENTATION RATE 20 mm/hr (0-20)
[2023-12-02 15:05] LABS: ALKALINE PHOSPHATASE 68 U/L (46-116); ALT/SGPT 11 U/L (7.0-40); AST/SGOT 9 U/L (<34); BILIRUBIN,DIRECT < 0.1 MG/DL (<0.4); BILIRUBIN,TOTAL 0.3 MG/DL (0.3-1.2); BLOOD UREA NITROGEN 14 MG/DL (9-23); CARBON DIOXIDE LEVEL 28 MMOL/L (20-31); CHLORIDE LEVEL 104 MMOL/L (98-107); CHOLESTEROL LEVEL 184 MG/DL (<200); CHOLESTEROL RISK RATIO 2.48 (<5); CREATININE FOR GFR 0.92 MG/DL (0.55-1.30); GLOMERULAR FILTRATION RATE > 60.0 (>58); GLUCOSE, FASTING 87 MG/DL (60-100); HDL CHOLESTEROL 74.1 MG/DL (>40); LDL CHOLESTEROL 86.1 MG/DL (<100); NON-HDL-C 109.9 MG/DL; POTASSIUM SERUM 4.1 MMOL/L (3.5-5.1); SODIUM LEVEL 137 MMOL/L (136-145); TOTAL PROTEIN 6.7 G/DL (5.7-8.2); TRIGLYCERIDES LEVEL 119 MG/DL (<150)
[2023-12-02 15:07] LABS: THYROID STIMULATING HORMONE 1.841 uIU/ML (0.55-4.78)
== END ==
LOC: M LAB 14:01
PROVIDERS: ATTEND Nurse Practitioner Psychiatric/Mental Health
DX: F34.1 Dysthymic disorder (principal)

== ENCOUNTER → 2024-02-28 | Outpatient (CLI) | payer OTHER ==
[~2024-02-28] MED LIST changes: +DOXY-323 PO; +DOXY-440 PO; -DOXY-443 PO; -DOXY-444 PO; +FLUO-365 PO; -FLUO20CA22 PO
[2024-02-28 17:01] LABS: BASO % 0.3 % (0.0-1.0); EOS # 0.1 10^3/uL (0.0-0.5); EOS % 1.3 % (0.0-3.0); HEMATOCRIT 37.8 % (36.0-47.0); HEMOGLOBIN 12.5 g/dl (12.0-15.5); LYMPH # 2.7 10^3/uL (1.5-5.0); LYMPH % 33.7 % (24.0-44.0); MEAN CORPUSCULAR HEMOGLOBIN 32.4 pg (27.0-33.0); MEAN CORPUSCULAR HGB CONC 33.1 g/dl (32.0-36.5); MEAN CORPUSCULAR VOLUME 97.9 fl (80.0-96.0); MONO # 0.5 10^3/uL (0.0-0.8); MONO % 6.2 % (2.0-8.0); NEUTROPHILS # 4.6 10^3/uL (1.5-8.5); NEUTROPHILS % 58.1 % (36.0-66.0); PLATELET COUNT, AUTOMATED 200 10^3/uL (150-450); RED BLOOD COUNT 3.86 10^6/uL (4.00-5.40); WHITE BLOOD COUNT 7.9 10^3/uL (4.0-10.0)
[2024-02-28 17:06] LABS: ERYTHROCYTE SEDIMENTATION RATE 7 mm/hr (0-20)
[2024-02-28 17:32] LABS: ALBUMIN 3.9 G/DL (3.2-5.2); ALKALINE PHOSPHATASE 74 U/L (46-116); ALT/SGPT 33 U/L (7.0-40); AST/SGOT 12 U/L (<34); BILIRUBIN,DIRECT < 0.1 MG/DL (<0.4); BILIRUBIN,TOTAL 0.2 MG/DL (0.3-1.2); BLOOD UREA NITROGEN 19 MG/DL (9-23); CALCIUM LEVEL 9.5 MG/DL (8.5-10.1); CARBON DIOXIDE LEVEL 30 MMOL/L (20-31); CHLORIDE LEVEL 105 MMOL/L (98-107); CHOLESTEROL LEVEL 186 MG/DL (<200); CHOLESTEROL RISK RATIO 3.05 (<5); CREATININE FOR GFR 0.64 MG/DL (0.55-1.30); GLOMERULAR FILTRATION RATE > 60.0 (>58); GLUCOSE, FASTING 75 MG/DL (60-100); HDL CHOLESTEROL 60.9 MG/DL (>40); LDL CHOLESTEROL 91.9 MG/DL (<100); NON-HDL-C 125.1 MG/DL; POTASSIUM SERUM 4.3 MMOL/L (3.5-5.1); SODIUM LEVEL 140 MMOL/L (136-145); TOTAL PROTEIN 6.4 G/DL (5.7-8.2); TRIGLYCERIDES LEVEL 166 MG/DL (<150)
[2024-02-28 17:35] LABS: THYROID STIMULATING HORMONE 1.535 uIU/ML (0.55-4.78)
== END ==
LOC: M LAB 16:17
PROVIDERS: ATTEND Nurse Practitioner Psychiatric/Mental Health
DX: F34.1 Dysthymic disorder (principal)

== ENCOUNTER → 2024-03-06 | Outpatient (CLI) | payer OTHER | LOC: M EKG 14:44 | PROVIDERS: ATTEND Nurse Practitioner Psychiatric/Mental Health | DX: F41.1 Generalized anxiety disorder (principal) ==

== ENCOUNTER → 2024-03-17 | Outpatient (CLI) | payer OTHER ==
[~2024-03-17] MED LIST changes: +HOLTER MONITOR XX; +LEVO1TAB40 PO
== END ==
LOC: M EKG 11:04 → MERGE 11:04
PROVIDERS: ATTEND Emergency Medicine
DX: R00.2 Palpitations (principal); Z53.9 Procedure and treatment not carried out, unspecified reason

== ENCOUNTER 2024-04-12 00:51 | Emergency (ER) | payer OTHER ==
[~2024-04-12] VITALS: Ht 170.2 cm; Wt 71.8 kg
[2024-04-12 01:32] VITALS: TEMP 97.4
[2024-04-12 06:13] VITALS: BP 110/60; O2SAT 97
[2024-04-12 07:01] LABS: BASO % 0.5 % (0.0-1.0); EOS # 0.1 10^3/uL (0.0-0.5); EOS % 1.1 % (0.0-3.0); HEMATOCRIT 37.5 % (36.0-47.0); HEMOGLOBIN 12.4 g/dl (12.0-15.5); LYMPH # 3.6 10^3/uL (1.5-5.0); LYMPH % 43.2 % (24.0-44.0); MEAN CORPUSCULAR HEMOGLOBIN 31.6 pg (27.0-33.0); MEAN CORPUSCULAR HGB CONC 33.1 g/dl (32.0-36.5); MEAN CORPUSCULAR VOLUME 95.7 fl (80.0-96.0); MONO # 0.6 10^3/uL (0.0-0.8); MONO % 7.7 % (2.0-8.0); NEUTROPHILS # 3.9 10^3/uL (1.5-8.5); NEUTROPHILS % 47.1 % (36.0-66.0); PLATELET COUNT, AUTOMATED 241 10^3/uL (150-450); RED BLOOD COUNT 3.92 10^6/uL (4.00-5.40); WHITE BLOOD COUNT 8.3 10^3/uL (4.0-10.0)
[2024-04-12 07:16] LABS: AMPHETAMINES LEVEL URINE NEGATIVE (NEGATIVE); METHADONE URINE NEGATIVE (NEGATIVE); OPIATES URINE NEGATIVE (NEGATIVE); PHENCYCLIDINE URINE NEGATIVE (NEGATIVE)
[2024-04-12 07:17] LABS: BARBITURATES URINE NEGATIVE (NEGATIVE); BENZODIAZEPINES URINE NEGATIVE (NEGATIVE); COCAINE METABOLITE URINE NEGATIVE (NEGATIVE)
[2024-04-12 07:19] LABS: BLOOD UREA NITROGEN 13 MG/DL (9-23); CALCIUM LEVEL 8.7 MG/DL (8.5-10.1); CARBON DIOXIDE LEVEL 25 MMOL/L (20-31); CHLORIDE LEVEL 110 MMOL/L (98-107); CREATININE FOR GFR 0.63 MG/DL (0.55-1.30); GLOMERULAR FILTRATION RATE > 60.0 (>58); GLUCOSE, FASTING 73 MG/DL (60-100); POTASSIUM SERUM 4.2 MMOL/L (3.5-5.1); SODIUM LEVEL 146 MMOL/L (136-145)
[2024-04-12 07:26] LABS: CANNABINOIDS URINE POSITIVE (NEGATIVE)
[2024-04-23] MEDS ORDERED: CIPR500T39 PO (09:40)
== END 2024-04-12 07:55 | disposition left against medical advice (07) ==
LOC: EDBD 00:51 → M ED 00:51
DX: F10.129 Alcohol abuse with intoxication, unspecified (principal); S09.90XA Unspecified injury of head, initial encounter; Y04.0XXA Assault by unarmed brawl or fight, initial encounter; Y92.89 Other specified places as the place of occurrence of the external cause; Y93.89 Activity, other specified; Y99.8 Other external cause status; Z88.0 Allergy status to penicillin; Z88.2 Allergy status to sulfonamides

== ENCOUNTER 2024-04-12 10:23 | Emergency (ER) | payer OTHER ==
[~2024-04-12] VITALS: Ht 170.2 cm; Wt 68.2 kg
[2024-04-12] MEDS: NS 1,000 ML IV ONE (13:38)
[2024-04-12 13:47] LABS: BASO % 0.3 % (0.0-1.0); HEMATOCRIT 35.6 % (36.0-47.0); HEMOGLOBIN 12.1 g/dl (12.0-15.5); LYMPH # 1.6 10^3/uL (1.5-5.0); LYMPH % 13.1 % (24.0-44.0); MEAN CORPUSCULAR HEMOGLOBIN 32.4 pg (27.0-33.0); MEAN CORPUSCULAR VOLUME 95.2 fl (80.0-96.0); MONO # 0.5 10^3/uL (0.0-0.8); MONO % 3.8 % (2.0-8.0); NEUTROPHILS # 9.9 10^3/uL (1.5-8.5); NEUTROPHILS % 82.4 % (36.0-66.0); PLATELET COUNT, AUTOMATED 239 10^3/uL (150-450); RED BLOOD COUNT 3.74 10^6/uL (4.00-5.40)
[2024-04-12 14:07] LABS: ETHYL ALCOHOL (ETHANOL) 0.004 % (0.000-0.010)
[2024-04-12 14:09] LABS: BLOOD UREA NITROGEN 19 MG/DL (9-23); CALCIUM LEVEL 9.3 MG/DL (8.5-10.1); CARBON DIOXIDE LEVEL 24 MMOL/L (20-31); CHLORIDE LEVEL 108 MMOL/L (98-107); CREATININE FOR GFR 0.51 MG/DL (0.55-1.30); GLOMERULAR FILTRATION RATE > 60.0 (>58); GLUCOSE, FASTING 79 MG/DL (60-100); MAGNESIUM LEVEL 2.2 MG/DL (1.8-2.4); POTASSIUM SERUM 4.3 MMOL/L (3.5-5.1); SODIUM LEVEL 140 MMOL/L (136-145)
[2024-04-12 14:23] LABS: HCG, SERUM QUALITATIVE NEGATIVE (NEGATIVE)
[2024-04-12 15:11] LABS: AMPHETAMINES LEVEL URINE NEGATIVE (NEGATIVE); BARBITURATES URINE NEGATIVE (NEGATIVE); BENZODIAZEPINES URINE NEGATIVE (NEGATIVE); COCAINE METABOLITE URINE NEGATIVE (NEGATIVE); METHADONE URINE NEGATIVE (NEGATIVE); OPIATES URINE NEGATIVE (NEGATIVE); PHENCYCLIDINE URINE NEGATIVE (NEGATIVE)
[2024-04-12 15:17] LABS: CANNABINOIDS URINE POSITIVE (NEGATIVE)
[2024-04-12 17:50] VITALS: BP 123/58; TEMP 97.5; O2SAT 98
[2024-04-23] MEDS ORDERED: CIPR500T39 PO (09:40)
== END 2024-04-12 19:08 | disposition home or self-care (01) ==
LOC: M ED 10:23 → EDBD 10:23 → M ED 19:08
DX: S00.83XA Contusion of other part of head, initial encounter (principal); S71.111A Laceration without foreign body, right thigh, initial encounter; X58.XXXA Exposure to other specified factors, initial encounter; Y92.89 Other specified places as the place of occurrence of the external cause; Y93.89 Activity, other specified; Y99.8 Other external cause status; F10.129 Alcohol abuse with intoxication, unspecified

== ENCOUNTER 2024-04-24 16:55 | Inpatient (IN) | payer MEDICAID, OTHER ==
[~2024-04-24] VITALS: Ht 170.2 cm; Wt 75.0 kg
[~2024-04-24 16:55] MED LIST changes: +CIPR500T39 PO
[2024-04-24] MEDS: NS 1,000 ML IV ONE (18:12)
[2024-04-24] MEDS: DEXTROSE 50% 50ML SYRINGE IV STA (18:12)
[2024-04-24 18:23] LABS: BASO % 0.3 % (0.0-1.0); HEMATOCRIT 35.9 % (36.0-47.0); LYMPH # 2.4 10^3/uL (1.5-5.0); LYMPH % 26.7 % (24.0-44.0); MEAN CORPUSCULAR HEMOGLOBIN 31.8 pg (27.0-33.0); MEAN CORPUSCULAR HGB CONC 33.4 g/dl (32.0-36.5); MEAN CORPUSCULAR VOLUME 95.2 fl (80.0-96.0); MONO # 0.7 10^3/uL (0.0-0.8); MONO % 7.8 % (2.0-8.0); NEUTROPHILS # 5.8 10^3/uL (1.5-8.5); PLATELET COUNT, AUTOMATED 248 10^3/uL (150-450); RED BLOOD COUNT 3.77 10^6/uL (4.00-5.40); WHITE BLOOD COUNT 8.9 10^3/uL (4.0-10.0)
[2024-04-24 18:39] LABS: ETHYL ALCOHOL (ETHANOL) < 0.003 % (0.000-0.010)
[2024-04-24 18:40] LABS: CPK CREATINE PHOSPHOKINASE 30 U/L (34-145)
[2024-04-24 18:41] LABS: ALKALINE PHOSPHATASE 56 U/L (46-116); ALT/SGPT 17 U/L (7.0-40); AST/SGOT 14 U/L (<34); BILIRUBIN,DIRECT 0.1 MG/DL (<0.4); BILIRUBIN,TOTAL 0.5 MG/DL (0.3-1.2); BLOOD UREA NITROGEN 17 MG/DL (9-23); CALCIUM LEVEL 9.4 MG/DL (8.5-10.1); CARBON DIOXIDE LEVEL 24 MMOL/L (20-31); CHLORIDE LEVEL 112 MMOL/L (98-107); CREATININE FOR GFR 0.63 MG/DL (0.55-1.30); GLOMERULAR FILTRATION RATE > 60.0 (>58); GLUCOSE, FASTING 86 MG/DL (60-100); POTASSIUM SERUM 3.8 MMOL/L (3.5-5.1); SALICYLATE LEVEL < 3.0 MG/DL (<30); SODIUM LEVEL 141 MMOL/L (136-145); TOTAL PROTEIN 6.7 G/DL (5.7-8.2)
[2024-04-24 18:42] LABS: THYROID STIMULATING HORMONE 0.661 uIU/ML (0.55-4.78)
[2024-04-25 01:24] LABS: AMPHETAMINES LEVEL URINE NEGATIVE (NEGATIVE); BARBITURATES URINE NEGATIVE (NEGATIVE); BENZODIAZEPINES URINE NEGATIVE (NEGATIVE); COCAINE METABOLITE URINE NEGATIVE (NEGATIVE); METHADONE URINE NEGATIVE (NEGATIVE); OPIATES URINE NEGATIVE (NEGATIVE); PHENCYCLIDINE URINE NEGATIVE (NEGATIVE)
[2024-04-25 01:25] LABS: CANNABINOIDS URINE POSITIVE (NEGATIVE)
[2024-04-25] MEDS ORDERED: traZODone 100 MG TAB PO ONE (06:20)
[2024-04-25] MEDS ORDERED: TOPIRAMATE (TopAMAX) 100 MG TAB PO ONE (06:20)
[2024-04-25] MEDS: TOPIRAMATE (TopAMAX) 25 MG TAB PO ONE (06:30)
[2024-04-25] MEDS ORDERED: NALT50TA4 PO (09:40)
[2024-04-25] MEDS ORDERED: TRAZ-257 PO (09:40)
[2024-04-25] MEDS ORDERED: GUAN1TAB17 PO (09:40)
[2024-04-25] MEDS ORDERED: GUAN1TAB16 PO (09:40)
[2024-04-25] MEDS ORDERED: TOPI-21 PO (09:40)
[2024-04-25] MEDS ORDERED: CETI-24 PO (09:40)
[2024-04-25] MEDS ORDERED: ACAM0.05 PO (09:40)
[2024-04-25] MEDS ORDERED: B-CO1TAB14 PO (09:40)
[2024-04-25] MEDS ORDERED: IBUP80TA PO (09:40)
[2024-04-25] MEDS ORDERED: HYDR50TA70 PO (09:47)
[2024-04-25] MEDS ORDERED: HOME MED LIST COMPLETE! XX SCH (10:00)
[2024-04-25] MEDS: ACETAMINOPHEN TAB 650MG DOSE (2X325MG) PO ONE (10:48)
[2024-04-25] MEDS: hydrOXYzine 50 MG TAB PO ONE ×2 (10:48→23:01)
[2024-04-25] MEDS: ACAMPROSATE CALCIUM 333MG TABLET (CAMPRAL) PO SCH (10:48)
[2024-04-25] MEDS: EXCEDRIN MIGRAINE TABLET PO PRN (16:53)
[2024-04-25] MEDS: traZODone 100 MG TAB PO ONE (21:25)
[2024-04-25] MEDS ORDERED: MAALOX 30 ML SUSP *UDC PO PRN (21:30)
[2024-04-25] MEDS: GABAPENTIN 300 MG CAP PO ONE (23:00)
[2024-04-25] MEDS: CYCLOBENZAPRINE 10MG TABLET PO ONE (23:01)
[2024-04-25] MEDS: diphenhydrAMINE 25MG CAP PO PRN (23:01)
[2024-04-25] MEDS: RIZATRIPTAN BENZOATE 10 MG TAB PO ONE (23:01)
[2024-04-25 23:50] VITALS: BP 146/66; TEMP 97.5; O2SAT 100
[2024-04-26 06:27] VITALS: BP 104/57; TEMP 97.6; O2SAT 98
[2024-04-26] MEDS ORDERED: FUROSEMIDE 20 MG TAB PO PRN (10:40)
[2024-04-26] MEDS ORDERED: ALBUTEROL 90 MCG/ACT 8GM HFA INHALER INH PRN (10:40)
[2024-04-26] MEDS ORDERED: RIZATRIPTAN MLT 10 MG TAB PO PRN (10:40)
[2024-04-26] MEDS: CYCLOBENZAPRINE 10MG TABLET PO PRN (11:42)
[2024-04-26] MEDS: GABAPENTIN 300 MG CAP PO SCH (11:42)
[2024-04-26] MEDS: SUCRALFATE 1 GM TAB PO SCH (11:42)
[2024-04-26] MEDS: CETIRIZINE (ZyrTEC) 10 MG TAB PO SCH (11:43)
[2024-04-26] MEDS: TOPIRAMATE (TopAMAX) 25 MG TAB PO SCH (11:43)
[2024-04-26] MEDS: PANTOPRAZOLE 40MG TAB (PROTONIX) PO SCH (11:43)
[2024-04-26] MEDS: LIDOCAINE 5% (LIDODERM) PATCH TD SCH ×2 (11:44)
[2024-04-26] MEDS: ACAMPROSATE CALCIUM 333MG TABLET (CAMPRAL) PO SCH (11:46)
[2024-04-26] MEDS ORDERED: oxyBUTYnin 5 MG TAB PO PRN (14:50)
[2024-04-26] MEDS: CIPROFLOXACIN 500MG TABLET PO ONE (15:18)
[2024-04-26] MEDS: VITAMIN B COMPLEX/VIT C CAP PO SCH (15:19)
[2024-04-26] MEDS: IBUPROFEN 400MG TAB PO PRN (17:16)
[2024-04-26 17:21] VITALS: BP 125/79; TEMP 97.4; O2SAT 100
[2024-04-26] MEDS: ACETAMINOPHEN TAB 650MG DOSE (2X325MG) PO PRN (19:55)
[2024-04-26] MEDS: NYSTATIN 100,000 UNITS/GM TOPICAL PWD 15GM TOP SCH (21:00)
[2024-04-26] MEDS: NALTREXONE 50 MG TAB PO SCH (21:22)
[2024-04-26] MEDS: PILL CUTTER 1 EACH XX PRN (21:22)
[2024-04-26] MEDS: QUEtiapine FUMARATE 100 MG TAB PO SCH (22:54)
[2024-04-26] MEDS: MICONAZOLE-7 VAGINAL 2% CREAM 47.7GM PV SCH (23:36)
[2024-04-27] MEDS: CIPROFLOXACIN 500MG TABLET PO SCH (05:41)
[2024-04-27 06:32] VITALS: BP 101/58; TEMP 97.5; O2SAT 99
[2024-04-27] MEDS: DIVALPROEX 250MG TAB PO SCH (09:50)
[2024-04-27 17:28] VITALS: BP 134/70; TEMP 96.8; O2SAT 100
[2024-04-27] MEDS: CYCLOBENZAPRINE 10MG TABLET PO PRN (18:16)
[2024-04-27] MEDS ORDERED: MICONAZOLE-7 VAGINAL 2% CREAM 47.7GM PV SCH (21:00)
[2024-04-27] MEDS: DIVALPROEX 500 MG TAB PO SCH (21:44)
[2024-04-27] MEDS: traZODone 50 MG TAB PO PRN (23:18)
[2024-04-28 06:14] VITALS: BP 105/56; TEMP 97; O2SAT 100
[2024-04-28] MEDS ORDERED: DICLOFENAC EPOLAMINE 1.3% PATCH TOP SCH (09:00)
[2024-04-28 17:00] VITALS: BP 128/83; TEMP 97.2; O2SAT 96
[2024-04-28] MEDS: DICLOFENAC EPOLAMINE 1.3% PATCH TOP SCH (21:41)
[2024-04-29 06:29] VITALS: BP 134/72; TEMP 96.8; O2SAT 97
[2024-04-29] MEDS ORDERED: MIRTAZAPINE 15 MG TAB PO PRN (11:25)
[2024-04-29] MEDS ORDERED: ANALGESIC BALM CRM 3OZ TOP PRN (11:55)
[2024-04-29] MEDS: CAPSAICIN 0.025% CR 60 GM TOP SCH (13:00)
[2024-04-29] MEDS: GABAPENTIN 100 MG CAP PO SCH (15:52)
[2024-04-29] MEDS: methocarbamoL 500 MG TAB PO ONE (15:52)
[2024-04-29] MEDS: GABAPENTIN 300 MG CAP PO SCH (15:52)
[2024-04-29 19:02] VITALS: BP 122/90; TEMP 97.6
[2024-04-29] MEDS: methocarbamoL 500 MG TAB PO SCH (21:40)
[2024-04-30 06:39] VITALS: BP 120/76; TEMP 96.8; O2SAT 97
[2024-04-30] MEDS: NYSTATIN 500,000U/5ML SUSP UDC PO SCH (09:00)
[2024-04-30] MEDS ORDERED: FLUCONAZOLE 100 MG TAB PO ONE (12:50)
[2024-04-30] MEDS ORDERED: traZODone 50 MG TAB PO PRN (13:10)
[2024-04-30] MEDS ORDERED: traZODone 100 MG TAB PO PRN (13:20)
[2024-04-30] MEDS: FLUCONAZOLE 50MG TABLET PO ONE (13:51)
[2024-04-30 17:51] VITALS: BP 125/57; TEMP 96.2; O2SAT 100
[2024-05-01 06:35] VITALS: BP 112/58; TEMP 97.7; O2SAT 96
[2024-05-01] MEDS: DIVALPROEX 250MG TAB PO SCH (08:54)
[2024-05-01] MEDS ORDERED: GABA-282 PO (09:37)
[2024-05-01] MEDS ORDERED: OXYB5TAB14 PO (09:37)
[2024-05-01] MEDS ORDERED: TRAZ-257 PO (09:37)
[2024-05-01] MEDS ORDERED: DICL1PAT6 TOP (09:37)
[2024-05-01] MEDS ORDERED: NYST-38 PO (09:37)
[2024-05-01] MEDS ORDERED: MICO45CR2 PV (09:37)
[2024-05-01] MEDS ORDERED: METH-1164 PO (09:37)
[2024-05-01] MEDS ORDERED: NYST10006 TOP (09:37)
[2024-05-01] MEDS ORDERED: DEPA1TAB3 PO (09:37)
[2024-05-01] MEDS: MOM 30ML SUSPENSION UDC PO PRN (09:44)
== END 2024-05-01 15:01 | disposition home or self-care (01) | DRG 753 ==
LOC: M ED 16:55 → M ED INP 04-25 21:27 → M PSY 04-25 22:15
PROVIDERS: ADMIT Psychiatry & Neurology Psychiatry; ATTEND Psychiatry & Neurology Child & Adolescent Psychiatry
DX: F31.9 Bipolar disorder, unspecified (principal); R45.851 Suicidal ideations; F10.20 Alcohol dependence, uncomplicated; F19.10 Other psychoactive substance abuse, uncomplicated; G43.909 Migraine, unspecified, not intractable, without status migrainosus; K21.9 Gastro-esophageal reflux disease without esophagitis; J45.20 Mild intermittent asthma, uncomplicated; F41.9 Anxiety disorder, unspecified; F90.9 Attention-deficit hyperactivity disorder, unspecified type; M54.2 Cervicalgia; Z79.899 Other long term (current) drug therapy; Z91.52 Personal history of nonsuicidal self-harm; Z88.0 Allergy status to penicillin; Z88.1 Allergy status to other antibiotic agents; Z88.2 Allergy status to sulfonamides

== ENCOUNTER → 2024-05-08 | Outpatient (CLI) | payer MEDICAID ==
[~2024-05-08] MED LIST changes: +B-CO1TAB14 PO; +CETI-24 PO; +DEPA1TAB3 PO; +DICL1PAT6 TOP; +DICL20GE TOP; +DIVA500T94 PO; +GUAN1TAB16 PO; +GUAN1TAB17 PO; +LIDO1PAD TOP; +METH-1164 PO; +MICO45CR2 PV; +NALT50TA4 PO; +NYST-38 PO; +NYST10006 TOP; +OXYB5TAB14 PO; +TOPI-21 PO; +TRAZ-189 PO; +TRAZ-257 PO
== END ==
LOC: M RAD 18:00
PROVIDERS: ATTEND Physician Assistant
DX: M54.2 Cervicalgia (principal)

== ENCOUNTER 2024-05-14 22:42 | Inpatient (IN) | payer MEDICAID ==
[~2024-05-14] VITALS: Ht 170.2 cm; Wt 75.0 kg
[2024-05-14] MEDS: NS 1,000 ML IV ONE (00:15)
[~2024-05-14 22:42] MED LIST changes: -DICL20GE TOP; -DIVA500T94 PO; -LIDO1PAD TOP; -TRAZ-189 PO
[2024-05-15] MEDS ORDERED: LORazepam 2 MG TAB PO PRN (00:30)
[2024-05-15 00:44] LABS: BASO % 0.6 % (0.0-1.0); EOS % 0.3 % (0.0-3.0); ETHYL ALCOHOL (ETHANOL) 0.215 % (0.000-0.010); HEMATOCRIT 37.1 % (36.0-47.0); LYMPH % 33.2 % (24.0-44.0); MEAN CORPUSCULAR HGB CONC 32.3 g/dl (32.0-36.5); MEAN CORPUSCULAR VOLUME 95.9 fl (80.0-96.0); MONO % 7.2 % (2.0-8.0); NEUTROPHILS % 58.1 % (36.0-66.0); PLATELET COUNT, AUTOMATED 199 10^3/uL (150-450); RED BLOOD COUNT 3.87 10^6/uL (4.00-5.40); VALPROIC ACID (DEPAKOTE) < 3.0 UG/ML (50.0-100.0); WHITE BLOOD COUNT 6.8 10^3/uL (4.0-10.0)
[2024-05-15 00:45] LABS: CPK CREATINE PHOSPHOKINASE 42 U/L (34-145); LYMPH # 2.3 10^3/uL (1.5-5.0); MONO # 0.5 10^3/uL (0.0-0.8); NEUTROPHILS # 3.9 10^3/uL (1.5-8.5)
[2024-05-15 00:46] LABS: SALICYLATE LEVEL < 3.0 MG/DL (<30)
[2024-05-15 00:47] LABS: THYROID STIMULATING HORMONE 6.833 uIU/ML (0.55-4.78)
[2024-05-15 00:48] LABS: HCG, SERUM QUALITATIVE NEGATIVE (NEGATIVE)
[2024-05-15 00:50] LABS: ALBUMIN 3.5 G/DL (3.2-5.2); ALKALINE PHOSPHATASE 55 U/L (46-116); ALT/SGPT 24 U/L (7.0-40); AST/SGOT 22 U/L (<34); BILIRUBIN,DIRECT < 0.1 MG/DL (<0.4); BILIRUBIN,TOTAL < 0.2 MG/DL (0.3-1.2); BLOOD UREA NITROGEN 14 MG/DL (9-23); CALCIUM LEVEL 8.3 MG/DL (8.5-10.1); CARBON DIOXIDE LEVEL 25 MMOL/L (20-31); CHLORIDE LEVEL 116 MMOL/L (98-107); CREATININE FOR GFR 0.63 MG/DL (0.55-1.30); GLOMERULAR FILTRATION RATE > 60.0 (>58); GLUCOSE, FASTING 92 MG/DL (60-100); POTASSIUM SERUM 4.3 MMOL/L (3.5-5.1); SODIUM LEVEL 146 MMOL/L (136-145); TOTAL PROTEIN 6.3 G/DL (5.7-8.2)
[2024-05-15] MEDS: THIAMINE 100 MG TAB PO SCH (01:26)
[2024-05-15] MEDS: ACETAMINOPHEN TAB 650MG DOSE (2X325MG) PO ONE (01:26)
[2024-05-15] MEDS: ONDANSETRON 4MG 2ML VIAL IV ONE (05:26)
[2024-05-15 05:32] LABS: AMPHETAMINES LEVEL URINE NEGATIVE (NEGATIVE); BARBITURATES URINE NEGATIVE (NEGATIVE); BENZODIAZEPINES URINE NEGATIVE (NEGATIVE); COCAINE METABOLITE URINE NEGATIVE (NEGATIVE); METHADONE URINE NEGATIVE (NEGATIVE); OPIATES URINE NEGATIVE (NEGATIVE); PHENCYCLIDINE URINE NEGATIVE (NEGATIVE)
[2024-05-15 05:34] LABS: CANNABINOIDS URINE POSITIVE (NEGATIVE)
[2024-05-15] MEDS ORDERED: DICL20GE TOP (10:10)
[2024-05-15] MEDS ORDERED: METH-1164 PO (10:10)
[2024-05-15] MEDS ORDERED: LIDO1PAD TOP (10:10)
[2024-05-15] MEDS ORDERED: DIVA500T94 PO (10:10)
[2024-05-15] MEDS ORDERED: TRAZ-189 PO (10:10)
[2024-05-15] MEDS: FOLIC ACID 1MG TAB PO SCH (10:14)
[2024-05-15] MEDS: MULTIVITAMINS/MINERALS THERAP 1 TAB PO SCH (10:14)
[2024-05-15] MEDS ORDERED: MED REC IN PROGRESS XX SCH (10:30)
[2024-05-15] MEDS ORDERED: MAALOX 30 ML SUSP *UDC PO PRN (13:15)
[2024-05-15] MEDS ORDERED: traZODone 50 MG TAB PO PRN (13:15)
[2024-05-15] MEDS ORDERED: MOM 30ML SUSPENSION UDC PO PRN (13:15)
[2024-05-15] MEDS: IBUPROFEN 400MG TAB PO ONE (13:17)
[2024-05-15] MEDS ORDERED: HOME MED LIST COMPLETE! XX SCH (14:00)
[2024-05-15] MEDS: ONDANSETRON 4MG ORAL DISINTEGRATING TAB PO ONE (14:28)
[2024-05-15 17:05] VITALS: BP 143/81; TEMP 97.4; O2SAT 100
[2024-05-15] MEDS ORDERED: ALBUTEROL 90 MCG/ACT 8GM HFA INHALER INH PRN (17:55)
[2024-05-15] MEDS ORDERED: LIDOCAINE 5% (LIDODERM) PATCH TOP PRN (17:55)
[2024-05-15] MEDS: SUCRALFATE 1 GM TAB PO SCH (21:21)
[2024-05-15] MEDS: methocarbamoL 500 MG TAB PO SCH (21:21)
[2024-05-15] MEDS: guanFACINE 1 MG TAB PO SCH (21:23)
[2024-05-15] MEDS: GABAPENTIN 300 MG CAP PO SCH (21:23)
[2024-05-15] MEDS: traZODone 100 MG TAB PO PRN (21:24)
[2024-05-15] MEDS: ACAMPROSATE CALCIUM 333MG TABLET (CAMPRAL) PO SCH (21:24)
[2024-05-15] MEDS: PANTOPRAZOLE 40MG TAB (PROTONIX) PO SCH (21:24)
[2024-05-15] MEDS: IBUPROFEN 400MG TAB PO PRN (21:24)
[2024-05-15] MEDS: TOPIRAMATE (TopAMAX) 25 MG TAB PO SCH (21:25)
[2024-05-15] MEDS: NALTREXONE 50 MG TAB PO SCH (21:25)
[2024-05-16 06:30] VITALS: BP 105/56; TEMP 97.4; O2SAT 98
[2024-05-16] MEDS: CETIRIZINE (ZyrTEC) 10 MG TAB PO SCH (10:16)
[2024-05-16] MEDS: FUROSEMIDE 20 MG TAB PO SCH (10:17)
[2024-05-16 17:50] VITALS: BP 122/70; TEMP 97.2; O2SAT 99
[2024-05-16] MEDS: CYCLOBENZAPRINE 10MG TABLET PO PRN (19:11)
[2024-05-16] MEDS: ACETAMINOPHEN TAB 650MG DOSE (2X325MG) PO PRN (20:40)
[2024-05-16 20:44] VITALS: BP 129/89
[2024-05-16] MEDS: diphenhydrAMINE 25MG CAP PO PRN (22:45)
[2024-05-17 06:24] VITALS: BP 127/62; TEMP 97.1; O2SAT 100
[2024-05-17] MEDS ORDERED: LIDO1PAD TOP (08:59)
[2024-05-17] MEDS ORDERED: FURO20TA2 PO (08:59)
[2024-05-17] MEDS ORDERED: ACAM0.05 PO (08:59)
[2024-05-17] MEDS ORDERED: GUAN1TAB16 PO (08:59)
[2024-05-17] MEDS ORDERED: TRAZ-189 PO (08:59)
[2024-05-17] MEDS ORDERED: NALT50TA4 PO (08:59)
[2024-05-17] MEDS ORDERED: FLUO-365 PO (09:22)
== END 2024-05-17 12:15 | disposition home or self-care (01) | DRG 753 ==
LOC: M ED 22:42 → EDBD 22:42 → M ED INP 05-15 13:11 → M PSY 05-15 15:55
PROVIDERS: ADMIT Psychiatry & Neurology Child & Adolescent Psychiatry; ATTEND Psychiatry & Neurology Child & Adolescent Psychiatry
DX: F31.9 Bipolar disorder, unspecified (principal); F15.14 Other stimulant abuse with stimulant-induced mood disorder; J45.909 Unspecified asthma, uncomplicated; G43.909 Migraine, unspecified, not intractable, without status migrainosus; G62.9 Polyneuropathy, unspecified; K21.9 Gastro-esophageal reflux disease without esophagitis; F10.10 Alcohol abuse, uncomplicated; E87.0 Hyperosmolality and hypernatremia; I89.0 Lymphedema, not elsewhere classified; Z79.899 Other long term (current) drug therapy; Z88.0 Allergy status to penicillin; Z88.2 Allergy status to sulfonamides; Z88.8 Allergy status to other drugs, medicaments and biological substances; Z91.51 Personal history of suicidal behavior; F17.200 Nicotine dependence, unspecified, uncomplicated

== ENCOUNTER → 2024-07-23 | Outpatient (REF) | payer OTHER, MEDICAID ==
[~2024-07-23] MED LIST changes: +DICL20GE TOP; +DIVA500T94 PO; -DOXY-323 PO; +DOXY-441 PO; +GABA-1172 PO; +GABA-1490 PO; -GABA-282 PO; -GABA600T4 PO; +LIDO1PAD TOP; +TRAZ-189 PO
== END ==
LOC: M LAB REF 17:44
PROVIDERS: ATTEND Student in an Organized Health Care Education/Training Program
DX: R30.0 Dysuria (principal)

== ENCOUNTER 2024-11-12 02:20 | Inpatient (IN) | payer MEDICAID, OTHER ==
[~2024-11-12] VITALS: Ht 170.2 cm; Wt 68.2 kg
[~2024-11-12 02:20] MED LIST changes: -CYCL5TAB PO; +CYCL5TAB4 PO
[2024-11-12 03:03] LABS: HEMOGLOBIN 12.4 g/dl (12.0-15.5); MEAN CORPUSCULAR HGB CONC 33.5 g/dl (32.0-36.5); MEAN CORPUSCULAR VOLUME 95.6 fl (80.0-96.0); PLATELET COUNT, AUTOMATED 219 10^3/uL (150-450); RED BLOOD COUNT 3.87 10^6/uL (4.00-5.40); WHITE BLOOD COUNT 8.3 10^3/uL (4.0-10.0)
[2024-11-12 03:24] LABS: BARBITURATES URINE NEGATIVE (NEGATIVE); BENZODIAZEPINES URINE NEGATIVE (NEGATIVE); COCAINE METABOLITE URINE NEGATIVE (NEGATIVE); METHADONE URINE NEGATIVE (NEGATIVE); OPIATES URINE NEGATIVE (NEGATIVE); PHENCYCLIDINE URINE NEGATIVE (NEGATIVE)
[2024-11-12 03:27] LABS: ETHYL ALCOHOL (ETHANOL) 0.088 % (0.000-0.010)
[2024-11-12 03:29] LABS: ALBUMIN 3.9 G/DL (3.2-5.2); ALKALINE PHOSPHATASE 53 U/L (35-104); ALT/SGPT 14 U/L (7.0-40); AMPHETAMINES LEVEL URINE POSITIVE (NEGATIVE); AST/SGOT 11 U/L (<34); BILIRUBIN,DIRECT < 0.1 MG/DL (<0.4); BILIRUBIN,TOTAL 0.2 MG/DL (0.3-1.2); BLOOD UREA NITROGEN 8 MG/DL (9-23); CALCIUM LEVEL 8.5 MG/DL (8.5-10.1); CANNABINOIDS URINE POSITIVE (NEGATIVE); CARBON DIOXIDE LEVEL 22 MMOL/L (20-31); CHLORIDE LEVEL 113 MMOL/L (98-107); CREATININE FOR GFR 0.63 MG/DL (0.55-1.30); GLOMERULAR FILTRATION RATE > 60.0 (>58); GLUCOSE, FASTING 97 MG/DL (60-100); SALICYLATE LEVEL < 3.0 MG/DL (<30); SODIUM LEVEL 145 MMOL/L (136-145); TOTAL PROTEIN 6.6 G/DL (5.7-8.2)
[2024-11-12 03:30] LABS: HCG, SERUM QUALITATIVE NEGATIVE (NEGATIVE)
[2024-11-12] MEDS ORDERED: AMPH1CAP16 PO (07:01)
[2024-11-12] MEDS ORDERED: FURO20TA2 PO (07:01)
[2024-11-12] MEDS ORDERED: BUSP30TA PO (07:01)
[2024-11-12] MEDS ORDERED: ALBU8.5H INH (07:01)
[2024-11-12] MEDS ORDERED: GABA-1635 PO (07:01)
[2024-11-12] MEDS ORDERED: HYDR50TA70 PO (07:01)
[2024-11-12] MEDS ORDERED: CYCL-707 PO (07:01)
[2024-11-12] MEDS ORDERED: DULO1CAP6 PO (07:01)
[2024-11-12] MEDS ORDERED: SUCR1TAB56 PO (07:01)
[2024-11-12] MEDS ORDERED: IBUP200C25 PO (07:01)
[2024-11-12] MEDS ORDERED: RIZA10TA2 PO (07:01)
[2024-11-12] MEDS ORDERED: hydrOXYzine 50 MG TAB PO PRN (07:10)
[2024-11-12] MEDS ORDERED: RIZATRIPTAN BENZOATE 10 MG TAB PO PRN (07:10)
[2024-11-12] MEDS ORDERED: ALBUTEROL 90 MCG/ACT 8GM HFA INHALER INH PRN ×2 (07:10→16:15)
[2024-11-12] MEDS ORDERED: CYCLOBENZAPRINE 10MG TABLET PO PRN (07:10)
[2024-11-12] MEDS ORDERED: IBUPROFEN 400MG TAB PO PRN (07:15)
[2024-11-12] MEDS: SUCRALFATE 1 GM TAB PO SCH ×2 (07:30→17:26)
[2024-11-12] MEDS: AMPHETAMINE/DEXTROAMPHETAMINE 5 MG *ER* CAPSULE (ADDERALL XR) PO SCH (08:01)
[2024-11-12] MEDS: TOPIRAMATE (TopAMAX) 100 MG TAB PO SCH ×2 (08:02→21:22)
[2024-11-12] MEDS: busPIRone 10 MG TAB PO SCH ×2 (08:02→21:21)
[2024-11-12] MEDS ORDERED: PRED20TA PO (08:40)
[2024-11-12] MEDS ORDERED: DULO60CA35 PO (08:43)
[2024-11-12] MEDS ORDERED: HOME MED LIST COMPLETE! XX SCH (08:45)
[2024-11-12] MEDS ORDERED: diphenhydrAMINE 25MG CAP PO PRN (12:00)
[2024-11-12] MEDS ORDERED: traZODone 50 MG TAB PO PRN (12:00)
[2024-11-12] MEDS ORDERED: OLANZapine 5 MG TAB PO PRN (12:00)
[2024-11-12] MEDS ORDERED: MAALOX 30 ML SUSP *UDC PO PRN (12:00)
[2024-11-12] MEDS ORDERED: LORazepam 1 MG TAB PO PRN (12:00)
[2024-11-12] MEDS ORDERED: ACETAMINOPHEN 325 MG TAB PO PRN (12:00)
[2024-11-12] MEDS ORDERED: MOM 30ML SUSPENSION UDC PO PRN (12:00)
[2024-11-12 13:48] VITALS: BP 130/89; TEMP 97.2; O2SAT 100
[2024-11-12] MEDS ORDERED: FUROSEMIDE 20 MG TAB PO PRN (16:15)
[2024-11-12] MEDS: PANTOPRAZOLE 40MG TAB (PROTONIX) PO SCH (21:00)
[2024-11-12] MEDS ORDERED: traZODone 100 MG TAB PO SCH (21:00)
[2024-11-12] MEDS: hydrOXYzine 50 MG TAB PO PRN (21:21)
[2024-11-12] MEDS: traZODone 100 MG TAB PO SCH (21:21)
[2024-11-12] MEDS: GABAPENTIN 400MG CAP PO SCH (21:22)
[2024-11-13 06:22] VITALS: BP 125/82; TEMP 97.9; O2SAT 99
[2024-11-13] MEDS: DULoxetine 30MG CAPSULE (CYMBALTA) PO SCH (10:40)
[2024-11-13] MEDS: CEFDINIR 300 MG CAP (OMNICEF) PO SCH (11:22)
[2024-11-13] MEDS: ONDANSETRON 4MG ORAL DISINTEGRATING TAB PO PRN (11:22)
[2024-11-13] MEDS: LIDOCAINE 5% (LIDODERM) PATCH TD SCH (14:00)
[2024-11-13 15:10] VITALS: BP 133/88; TEMP 97.9; O2SAT 100
[2024-11-13] MEDS: RIZATRIPTAN BENZOATE 10 MG TAB PO PRN (15:47)
[2024-11-13] MEDS: CYCLOBENZAPRINE 10MG TABLET PO PRN (22:13)
[2024-11-14 06:34] VITALS: BP 115/58; TEMP 97.5; O2SAT 98
== END 2024-11-14 11:35 | disposition home or self-care (01) | DRG 754 ==
LOC: M ED 02:20 → EDBD 02:20 → MERGE 12:00 → M ED INP 12:00 → M PSY 13:50
PROVIDERS: ADMIT Internal Medicine; ATTEND Internal Medicine
DX: F32.9 Major depressive disorder, single episode, unspecified (principal); R45.851 Suicidal ideations; R45.850 Homicidal ideations; F90.9 Attention-deficit hyperactivity disorder, unspecified type; Z91.51 Personal history of suicidal behavior; Z91.410 Personal history of adult physical and sexual abuse; Z79.899 Other long term (current) drug therapy; Z88.0 Allergy status to penicillin; Z88.2 Allergy status to sulfonamides

== ENCOUNTER 2024-11-25 20:26 | Emergency (ER) | payer MEDICAID, MEDICARE ==
[~2024-11-25] VITALS: Ht 170.2 cm; Wt 69.1 kg
[~2024-11-25 20:26] MED LIST changes: +BUSP30TA PO; +DULO1CAP6 PO; +DULO60CA35 PO; +GABA-1635 PO; +IBUP200C25 PO; +PRED20TA PO; +RIZA10TA2 PO
[2024-11-25 20:57] LABS: HEMATOCRIT 38.3 % (36.0-47.0); HEMOGLOBIN 12.7 g/dl (12.0-15.5); MEAN CORPUSCULAR HEMOGLOBIN 32.3 pg (27.0-33.0); MEAN CORPUSCULAR HGB CONC 33.2 g/dl (32.0-36.5); MEAN CORPUSCULAR VOLUME 97.5 fl (80.0-96.0); PLATELET COUNT, AUTOMATED 232 10^3/uL (150-450); RED BLOOD COUNT 3.93 10^6/uL (4.00-5.40); WHITE BLOOD COUNT 6.7 10^3/uL (4.0-10.0)
[2024-11-25 21:00] LABS: APPEARANCE, URINE CLEAR (CLEAR); BACTERIA, URINE AUTO NEGATIVE (NEGATIVE); BILIRUBIN, URINE AUTO NEGATIVE (NEGATIVE); BLOOD, URINE BLOOD NEGATIVE (NEGATIVE); COLOR, URINE STRAW (YELLOW); GLUCOSE, URINE (UA) AUTO NEGATIVE (NEGATIVE); KETONE, URINE AUTO NEGATIVE (NEGATIVE); LEUKOCYTE ESTERASE, URINE AUTO NEGATIVE (NEGATIVE); NITRITE, URINE AUTO NEGATIVE (NEGATIVE); PROTEIN, URINE AUTO NEGATIVE (NEGATIVE); RBC, URINE AUTO 0 /HPF (0-3); SPECIFIC GRAVITY URINE AUTO 1.002 (1.002-1.035); SQUAMOUS EPITHELIAL CELL UR AU 0 /HPF (0-6); UROBILINOGEN, URINE AUTO 0.2 mg/dL (0.0-2.0); WBC, URINE AUTO 0 /HPF (0-3)
[2024-11-25 21:19] LABS: BARBITURATES URINE NEGATIVE (NEGATIVE); BENZODIAZEPINES URINE NEGATIVE (NEGATIVE); COCAINE METABOLITE URINE NEGATIVE (NEGATIVE); METHADONE URINE NEGATIVE (NEGATIVE); OPIATES URINE NEGATIVE (NEGATIVE); PHENCYCLIDINE URINE NEGATIVE (NEGATIVE)
[2024-11-25 21:21] LABS: AMPHETAMINES LEVEL URINE POSITIVE (NEGATIVE); CANNABINOIDS URINE POSITIVE (NEGATIVE)
[2024-11-25 21:22] LABS: BLOOD UREA NITROGEN 8 MG/DL (9-23); CALCIUM LEVEL 9.1 MG/DL (8.5-10.1); CARBON DIOXIDE LEVEL 23 MMOL/L (20-31); CHLORIDE LEVEL 115 MMOL/L (98-107); CREATININE FOR GFR 0.68 MG/DL (0.55-1.30); GLOMERULAR FILTRATION RATE > 60.0 (>58); GLUCOSE, FASTING 83 MG/DL (60-100); SODIUM LEVEL 148 MMOL/L (136-145)
[2024-11-25 21:26] LABS: ETHYL ALCOHOL (ETHANOL) 0.107 % (0.000-0.010)
[2024-11-25 22:56] VITALS: BP 126/74; TEMP 98.9; O2SAT 99
== END 2024-11-25 23:01 | disposition home or self-care (01) ==
LOC: EDBD 20:26 → M ED 20:26
DX: S00.93XA Contusion of unspecified part of head, initial encounter (principal); Y04.8XXA Assault by other bodily force, initial encounter; Y92.019 Unspecified place in single-family (private) house as the place of occurrence of the external cause; Y93.9 Activity, unspecified; Y99.9 Unspecified external cause status; K21.9 Gastro-esophageal reflux disease without esophagitis; F32.A Depression, unspecified; F10.10 Alcohol abuse, uncomplicated; Z88.0 Allergy status to penicillin; Z88.2 Allergy status to sulfonamides; Z88.8 Allergy status to other drugs, medicaments and biological substances; Z79.1 Long term (current) use of non-steroidal anti-inflammatories (NSAID); Z79.51 Long term (current) use of inhaled steroids; Z79.899 Other long term (current) drug therapy

== ENCOUNTER 2025-01-05 20:17 | Inpatient (IN) | payer MEDICARE, OTHER ==
[~2025-01-05] VITALS: Ht 170.2 cm; Wt 69.3 kg
[2025-01-05] MEDS ORDERED: NORCO 5/325MG TABLET (HOME DOSE PACK) PO ONE (21:15)
[2025-01-05] MEDS ORDERED: HYDR-3713 PO (21:17)
[2025-01-05] MEDS: NEOSPORIN OINT 0.9 GM PKT TOP ONE (21:53)
[2025-01-05 22:01] LABS: HEMATOCRIT 32.1 % (36.0-47.0); MEAN CORPUSCULAR HEMOGLOBIN 32.6 pg (27.0-33.0); MEAN CORPUSCULAR HGB CONC 34.3 g/dl (32.0-36.5); MEAN CORPUSCULAR VOLUME 95.3 fl (80.0-96.0); PLATELET COUNT, AUTOMATED 217 10^3/uL (150-450); RED BLOOD COUNT 3.37 10^6/uL (4.00-5.40); WHITE BLOOD COUNT 9.2 10^3/uL (4.0-10.0)
[2025-01-05] MEDS: ANEXSIA, NORCO 7.5MG/325MG TABLET(HYDROCODONE/APAP) PO ONE (22:13)
[2025-01-05 22:19] LABS: ETHYL ALCOHOL (ETHANOL) 0.077 % (0.000-0.010)
[2025-01-05 22:21] LABS: ALBUMIN 3.9 G/DL (3.2-5.2); ALKALINE PHOSPHATASE 54 U/L (35-104); ALT/SGPT 16 U/L (7.0-40); AST/SGOT 18 U/L (<34); BILIRUBIN,DIRECT < 0.1 MG/DL (<0.4); BILIRUBIN,TOTAL 0.3 MG/DL (0.3-1.2); BLOOD UREA NITROGEN 10 MG/DL (9-23); CALCIUM LEVEL 8.6 MG/DL (8.5-10.1); CARBON DIOXIDE LEVEL 21 MMOL/L (20-31); CHLORIDE LEVEL 112 MMOL/L (98-107); CREATININE FOR GFR 0.65 MG/DL (0.55-1.30); GLOMERULAR FILTRATION RATE > 90.0 (>58); GLUCOSE, FASTING 78 MG/DL (60-100); POTASSIUM SERUM 3.6 MMOL/L (3.5-5.1); SALICYLATE LEVEL < 3.0 MG/DL (<30); SODIUM LEVEL 144 MMOL/L (136-145); TOTAL PROTEIN 6.3 G/DL (5.7-8.2)
[2025-01-05 22:23] LABS: THYROID STIMULATING HORMONE 1.606 uIU/ML (0.55-4.78)
[2025-01-05 22:29] LABS: BARBITURATES URINE NEGATIVE (NEGATIVE); BENZODIAZEPINES URINE NEGATIVE (NEGATIVE); COCAINE METABOLITE URINE NEGATIVE (NEGATIVE); METHADONE URINE NEGATIVE (NEGATIVE); OPIATES URINE NEGATIVE (NEGATIVE); PHENCYCLIDINE URINE NEGATIVE (NEGATIVE)
[2025-01-05 22:30] LABS: AMPHETAMINES LEVEL URINE POSITIVE (NEGATIVE); CANNABINOIDS URINE POSITIVE (NEGATIVE)
[2025-01-06] MEDS ORDERED: MOM 30ML SUSPENSION UDC PO PRN (03:10)
[2025-01-06] MEDS ORDERED: ACETAMINOPHEN 325 MG TAB PO PRN (03:10)
[2025-01-06] MEDS ORDERED: traZODone 50 MG TAB PO PRN (03:10)
[2025-01-06] MEDS ORDERED: MAALOX 30 ML SUSP *UDC PO PRN (03:10)
[2025-01-06] MEDS ORDERED: FUROSEMIDE 20 MG TAB PO PRN (03:20)
[2025-01-06] MEDS ORDERED: FLUoxetine 20MG CAP PO SCH (03:20)
[2025-01-06] MEDS ORDERED: hydrOXYzine 50 MG TAB PO PRN ×2 (03:20→15:50)
[2025-01-06] MEDS ORDERED: FREM225A SC (04:26)
[2025-01-06] MEDS ORDERED: PREM0.3T2 PO (04:26)
[2025-01-06] MEDS ORDERED: HOME MED LIST COMPLETE! XX SCH (04:30)
[2025-01-06] MEDS: IBUPROFEN 600MG TAB PO ONE (05:35)
[2025-01-06] MEDS ORDERED: SUCRALFATE 1 GM TAB PO SCH (07:30)
[2025-01-06] MEDS ORDERED: ACAMPROSATE CALCIUM 333MG TABLET (CAMPRAL) PO SCH (09:00)
[2025-01-06] MEDS ORDERED: DEXTROAMPHETAMINE OR SCH (09:00)
[2025-01-06] MEDS ORDERED: predniSONE 20 MG TAB PO SCH (09:00)
[2025-01-06] MEDS ORDERED: GABAPENTIN 300 MG CAP PO SCH (09:00)
[2025-01-06] MEDS ORDERED: AMPHETAMINE OR SCH (09:00)
[2025-01-06] MEDS ORDERED: guanFACINE 1 MG TAB PO SCH (09:00)
[2025-01-06] MEDS ORDERED: NALTREXONE 50 MG TAB PO SCH (09:00)
[2025-01-06 09:34] VITALS: BP 119/76; TEMP 97.1; O2SAT 100
[2025-01-06] MEDS: AMPHETAMINE/DEXTROAMPHETAMINE 5 MG *ER* CAPSULE (ADDERALL XR) PO SCH (09:59)
[2025-01-06] MEDS: TOPIRAMATE (TopAMAX) 100 MG TAB PO SCH (09:59)
[2025-01-06] MEDS: busPIRone 10 MG TAB PO SCH (09:59)
[2025-01-06] MEDS: PANTOPRAZOLE 40MG TAB (PROTONIX) PO SCH (10:00)
[2025-01-06] MEDS: CETIRIZINE (ZyrTEC) 10 MG TAB PO SCH (10:00)
[2025-01-06] MEDS: RIZATRIPTAN BENZOATE 10 MG TAB PO PRN (12:13)
[2025-01-06 15:44] VITALS: BP 134/72; TEMP 97.5; O2SAT 99
[2025-01-06] MEDS: DULoxetine 30MG CAPSULE (CYMBALTA) PO SCH (21:00)
[2025-01-06] MEDS: traZODone 100 MG TAB PO SCH (21:00)
[2025-01-06] MEDS: diphenhydrAMINE 25MG CAP PO PRN (21:07)
[2025-01-06] MEDS: CYCLOBENZAPRINE 10MG TABLET PO PRN (21:07)
[2025-01-07] MEDS: GABAPENTIN 400MG CAP PO SCH (00:21)
[2025-01-07] MEDS: traZODone 100 MG TAB PO ONE (00:21)
[2025-01-07] MEDS: guaiFENesin 200 MG TAB PO ONE (00:55)
[2025-01-07] MEDS: ALBUTEROL 90 MCG/ACT 8GM HFA INHALER INH PRN (07:46)
[2025-01-07] MEDS: ALBUTEROL 90 MCG/ACT 8GM HFA INHALER INH SCH (11:52)
[2025-01-07] MEDS: LIDOCAINE 5% (LIDODERM) PATCH TD SCH (11:54)
[2025-01-07] MEDS: predniSONE 20 MG TAB PO SCH (12:43)
[2025-01-07] MEDS: FUROSEMIDE 20 MG TAB PO SCH (12:43)
[2025-01-07] MEDS: FLUCONAZOLE 50MG TABLET PO SCH (12:57)
[2025-01-07 16:07] VITALS: BP 110/63; TEMP 97; O2SAT 100
[2025-01-07] MEDS: BENZONATATE 100MG CAPSULE PO PRN (16:27)
[2025-01-07] MEDS ORDERED: LORazepam 2 MG TAB PO PRN (16:30)
[2025-01-07 17:00] VITALS: BP 110/63
[2025-01-07] MEDS: FOLIC ACID 1MG TAB PO SCH (17:24)
[2025-01-07] MEDS: THIAMINE 100 MG TAB PO SCH (17:25)
[2025-01-07] MEDS: MULTIVITAMINS/MINERALS THERAP 1 TAB PO SCH (17:25)
[2025-01-07] MEDS: NORCO, ANEXSIA 5/325MG TABLET (HYDROcodone/ACETAMINOPHEN) PO PRN (17:28)
[2025-01-07] MEDS: PANTOPRAZOLE 40MG TAB (PROTONIX) PO SCH (21:10)
[2025-01-07] MEDS: IBUPROFEN 400MG TAB PO PRN (21:11)
[2025-01-07 21:36] VITALS: BP 134/71
[2025-01-08 06:23] VITALS: BP 94/54; TEMP 97.5; O2SAT 95
[2025-01-08 07:30] VITALS: BP 94/54
[2025-01-08] MEDS: CETIRIZINE (ZyrTEC) 10 MG TAB PO SCH (08:46)
[2025-01-08 14:58] VITALS: BP 94/53; TEMP 98.3; O2SAT 95
[2025-01-08 18:23] VITALS: BP 94/57
[2025-01-08 22:03] VITALS: BP 122/82
[2025-01-09 06:28] VITALS: BP 111/68; TEMP 98.6; O2SAT 96
[2025-01-09 06:50] VITALS: BP 111/68
[2025-01-09] MEDS ORDERED: ABIL1TAB11 PO (09:17)
[2025-01-09] MEDS ORDERED: CYMB1CAP5 PO (09:17)
[2025-01-09] MEDS ORDERED: PRED20TA PO (09:17)
[2025-01-09] MEDS ORDERED: TOPA100T12 PO (09:17)
[2025-01-09] MEDS ORDERED: GABA-284 PO (09:17)
[2025-01-09] MEDS ORDERED: BENZ-18 PO (09:17)
[2025-01-09] MEDS ORDERED: TRAZ-257 PO (09:17)
[2025-01-09] MEDS ORDERED: BUSP10TA PO (09:17)
[2025-01-09] MEDS ORDERED: HYDR50TA70 PO (09:17)
== END 2025-01-09 12:30 | disposition home or self-care (01) | DRG 753 ==
LOC: M ED 20:17 → EDBD 20:17 → M ED INP 01-06 03:08 → M PSY 01-06 09:46
PROVIDERS: ADMIT Student in an Organized Health Care Education/Training Program; ATTEND Student in an Organized Health Care Education/Training Program
DX: F31.63 Bipolar disorder, current episode mixed, severe, without psychotic features (principal); F41.1 Generalized anxiety disorder; F60.3 Borderline personality disorder; F10.20 Alcohol dependence, uncomplicated; G43.909 Migraine, unspecified, not intractable, without status migrainosus; G62.9 Polyneuropathy, unspecified; K21.9 Gastro-esophageal reflux disease without esophagitis; I89.0 Lymphedema, not elsewhere classified; J45.901 Unspecified asthma with (acute) exacerbation; B97.81 Human metapneumovirus as the cause of diseases classified elsewhere; M25.522 Pain in left elbow; M25.542 Pain in joints of left hand; Z63.0 Problems in relationship with spouse or partner; Z91.410 Personal history of adult physical and sexual abuse; Z91.51 Personal history of suicidal behavior; Z79.899 Other long term (current) drug therapy; Z88.0 Allergy status to penicillin; Z88.2 Allergy status to sulfonamides; Z88.8 Allergy status to other drugs, medicaments and biological substances

== ENCOUNTER → 2025-04-13 | Outpatient (CLI) | payer OTHER ==
[~2025-04-13] MED LIST changes: +ABIL1TAB11 PO; +BENZ-18 PO; +BUPR-670; -BUPR1TAB52; +BUSP10TA PO; +CYMB1CAP5 PO; +DIVA-41 PO; -DIVA500T94 PO; +FREM225A SC; +GABA-284 PO; +HYDR-3713 PO; +PREM0.3T2 PO; +TOPI-14 PO; +TOPI-257 PO; -TOPI100T9 PO; -TOPI200T7 PO
[2025-04-13 14:27] LABS: ALT/SGPT 13 U/L (7.0-40); AST/SGOT 14 U/L (<34); BASO # 0.0 10^3/uL (0.0-0.2); BASO % 0.4 % (0.0-1.0); CALCIUM LEVEL 8.8 MG/DL (8.5-10.1); CARBON DIOXIDE LEVEL 23 MMOL/L (20-31); CHLORIDE LEVEL 109 MMOL/L (98-107); CHOLESTEROL LEVEL 174 MG/DL (<200); CHOLESTEROL RISK RATIO 2.56 (<5); CREATININE FOR GFR 0.79 MG/DL (0.55-1.30); EOS # 0.2 10^3/uL (0.0-0.5); EOS % 3.2 % (0.0-3.0); GLOMERULAR FILTRATION RATE > 90.0 (>58); LDL CHOLESTEROL 81.5 MG/DL (<100); LYMPH # 1.9 10^3/uL (1.5-5.0); LYMPH % 25.3 % (24.0-44.0); MONO # 0.4 10^3/uL (0.0-0.8); MONO % 5.9 % (2.0-8.0); NEUTROPHILS # 4.9 10^3/uL (1.5-8.5); NEUTROPHILS % 64.8 % (36.0-66.0); NON-HDL-C 106.1 MG/DL; PLATELET COUNT, AUTOMATED 300 10^3/uL (150-450); POTASSIUM SERUM 3.9 MMOL/L (3.5-5.1); SODIUM LEVEL 146 MMOL/L (136-145); TRIGLYCERIDES LEVEL 123 MG/DL (<150)
[2025-04-13 14:29] LABS: FREE T4 0.96 NG/DL (0.89-1.76)
[2025-04-13 14:37] LABS: ESTIMATED AVERAGE GLUCOSE 100.0 MG/DL (60-110)
== END ==
LOC: M WUC 12:30
DX: Z00.8 Encounter for other general examination (principal)

== ENCOUNTER → 2025-04-26 | Outpatient (CLI) | payer OTHER, MEDICAID | LOC: M WUC 15:12 | DX: M25.551 Pain in right hip (principal) ==

== ENCOUNTER 2025-07-14 14:08 | Emergency (ER) | payer MEDICAID, OTHER ==
[~2025-07-14] VITALS: Ht 170.2 cm; Wt 97.2 kg
[2025-07-14] MEDS: NS (Normal Saline) 0.9% 1,000 ML IV ONE ×2 (15:36→17:29)
[2025-07-14] MEDS: CLINDAMYCIN 900 MG in IV 1 EA IV ONE (15:36)
[2025-07-14] MEDS ORDERED: ISOVUE-370 76% 100 ML VIAL As Ordered ONE (15:44)
[2025-07-14 15:49] LABS: BASO # 0.0 10^3/uL (0.0-0.2); BASO % 0.2 % (0.0-1.0); EOS # 0.2 10^3/uL (0.0-0.5); EOS % 1.4 % (0.0-3.0); LYMPH # 1.7 10^3/uL (1.5-5.0); LYMPH % 13.5 % (24.0-44.0); MONO # 1.0 10^3/uL (0.0-0.8); MONO % 8.0 % (2.0-8.0); NEUTROPHILS # 9.8 10^3/uL (1.5-8.5); NEUTROPHILS % 76.6 % (36.0-66.0); PLATELET COUNT, AUTOMATED 244 10^3/uL (150-450)
[2025-07-14] MEDS: MORPHINE 4 MG/ML 1 ML VIAL IV ONE ×2 (16:14→18:01)
[2025-07-14] MEDS: ONDANSETRON 4MG/2ML VIAL IV ONE (16:14)
[2025-07-14 16:21] LABS: ALT/SGPT 13 U/L (7.0-40); AST/SGOT 16 U/L (<34); CALCIUM LEVEL 8.9 MG/DL (8.5-10.1); CARBON DIOXIDE LEVEL 22 MMOL/L (20-31); CHLORIDE LEVEL 110 MMOL/L (98-107); CREATININE FOR GFR 0.74 MG/DL (0.55-1.30); GLOMERULAR FILTRATION RATE > 90.0 (>58); POTASSIUM SERUM 3.8 MMOL/L (3.5-5.1); SODIUM LEVEL 142 MMOL/L (136-145)
[2025-07-14] MEDS: MOXIFLOXACIN HCL 400 MG in IV 1 EA IV ONE (17:04)
[2025-07-14] MEDS: KETOROLAC 30 MG/ML 1 ML VIAL IV ONE (17:29)
[2025-07-14] MEDS: ACETAMINOPHEN *IV* 1,000 MG in IV 1 EA IV ONE (17:29)
[2025-07-14 18:00] VITALS: BP 123/64
[2025-07-14 18:15] VITALS: O2SAT 96
[2025-07-14] MEDS: FAMOTIDINE IV BAG 20 MG in IV 1 EA IV ONE (18:23)
[2025-07-14] MEDS: diphenhydrAMINE 50 MG/ML VIAL IV STA (18:23)
[2025-07-14 18:25] VITALS: TEMP 97.3
== END 2025-07-14 18:32 | disposition short-term general hospital (02) ==
LOC: M ED 14:08
DX: L02.11 Cutaneous abscess of neck (principal); L03.221 Cellulitis of neck; F41.9 Anxiety disorder, unspecified; F32.A Depression, unspecified; F10.10 Alcohol abuse, uncomplicated; Z88.0 Allergy status to penicillin; Z88.1 Allergy status to other antibiotic agents; Z88.2 Allergy status to sulfonamides; Z79.51 Long term (current) use of inhaled steroids; Z79.52 Long term (current) use of systemic steroids; Z79.899 Other long term (current) drug therapy
CPT/HCPCS: 36415; 70491; 71045; 80047; 80048; 80076; 84145; 85025; 87040; 93041; 96361; 96365; 96367; 96375; 99285; J0131; J0737; J1200; J1308; J1885; J2280; J2405; J2919; Q9967

== ENCOUNTER 2025-08-10 23:59 | Emergency (ER) | payer MEDICAID, OTHER ==
[~2025-08-10] VITALS: Ht 170.2 cm; Wt 97.2 kg
[~2025-08-10 23:59] MED LIST changes: +BUPR-363 PO; -BUPR75TA5 PO
[2025-08-11] MEDS: HALOPERIDOL LACTATE 5 MG/ML VIAL IM STA (00:53)
[2025-08-11 00:59] LABS: PLATELET COUNT, AUTOMATED 280 10^3/uL (150-450)
[2025-08-11 01:17] LABS: AMPHETAMINES LEVEL URINE NEGATIVE (NEGATIVE); BARBITURATES URINE NEGATIVE (NEGATIVE); BENZODIAZEPINES URINE NEGATIVE (NEGATIVE); COCAINE METABOLITE URINE NEGATIVE (NEGATIVE); METHADONE URINE NEGATIVE (NEGATIVE); OPIATES URINE NEGATIVE (NEGATIVE); PHENCYCLIDINE URINE NEGATIVE (NEGATIVE)
[2025-08-11 01:18] LABS: CANNABINOIDS URINE POSITIVE (NEGATIVE)
[2025-08-11 01:20] LABS: ETHYL ALCOHOL (ETHANOL) 0.249 % (0.000-0.010)
[2025-08-11 01:21] LABS: ALT/SGPT 17 U/L (7.0-40); AST/SGOT 22 U/L (<34); CALCIUM LEVEL 8.2 MG/DL (8.5-10.1); CARBON DIOXIDE LEVEL 16 MMOL/L (20-31); CHLORIDE LEVEL 116 MMOL/L (98-107); CREATININE FOR GFR 0.61 MG/DL (0.55-1.30); GLOMERULAR FILTRATION RATE > 90.0 (>58); POTASSIUM SERUM 3.8 MMOL/L (3.5-5.1); SALICYLATE LEVEL < 3.0 MG/DL (<30); SODIUM LEVEL 148 MMOL/L (136-145)
[2025-08-11 01:35] LABS: HCG, SERUM QUALITATIVE NEGATIVE (NEGATIVE)
[2025-08-11] MEDS ORDERED: LATU1TAB PO (11:36)
[2025-08-11 11:51] VITALS: BP 137/82; TEMP 98.3; O2SAT 100
== END 2025-08-11 12:03 | disposition home or self-care (01) ==
LOC: M ED 23:59
DX: F10.120 Alcohol abuse with intoxication, uncomplicated (principal); F32.A Depression, unspecified; M50.30 Other cervical disc degeneration, unspecified cervical region; K21.9 Gastro-esophageal reflux disease without esophagitis; F41.9 Anxiety disorder, unspecified; Z88.0 Allergy status to penicillin; Z88.1 Allergy status to other antibiotic agents; Z88.2 Allergy status to sulfonamides; Z79.51 Long term (current) use of inhaled steroids; Z79.899 Other long term (current) drug therapy
CPT/HCPCS: 70450; 72125; 80048; 80076; 80143; 80307; 82077; 84443; 84703; 85027; 96372; 99285; J1630; J2060

== ENCOUNTER 2025-08-24 00:53 | Emergency (ER) | payer MEDICAID, OTHER ==
[~2025-08-24] VITALS: Ht 170.2 cm; Wt 97.2 kg
[~2025-08-24 00:53] MED LIST changes: +LATU1TAB PO
[2025-08-24 01:40] LABS: PLATELET COUNT, AUTOMATED 245 10^3/uL (150-450)
[2025-08-24 02:12] LABS: ETHYL ALCOHOL (ETHANOL) 0.161 % (0.000-0.010)
[2025-08-24 02:13] LABS: SALICYLATE LEVEL < 3.0 MG/DL (<30)
[2025-08-24 02:14] LABS: HCG, SERUM QUALITATIVE NEGATIVE (NEGATIVE)
[2025-08-24 02:16] LABS: ALT/SGPT 12 U/L (7.0-40); AST/SGOT 17 U/L (<34); CALCIUM LEVEL 8.3 MG/DL (8.5-10.1); CARBON DIOXIDE LEVEL 24 MMOL/L (20-31); CHLORIDE LEVEL 114 MMOL/L (98-107); CREATININE FOR GFR 0.62 MG/DL (0.55-1.30); GLOMERULAR FILTRATION RATE > 90.0 (>58); POTASSIUM SERUM 3.9 MMOL/L (3.5-5.1); SODIUM LEVEL 148 MMOL/L (136-145)
[2025-08-24 06:21] LABS: AMPHETAMINES LEVEL URINE NEGATIVE (NEGATIVE); BARBITURATES URINE NEGATIVE (NEGATIVE); BENZODIAZEPINES URINE NEGATIVE (NEGATIVE); COCAINE METABOLITE URINE NEGATIVE (NEGATIVE); METHADONE URINE NEGATIVE (NEGATIVE); OPIATES URINE NEGATIVE (NEGATIVE); PHENCYCLIDINE URINE NEGATIVE (NEGATIVE)
[2025-08-24 06:24] LABS: CANNABINOIDS URINE POSITIVE (NEGATIVE)
[2025-08-24 09:45] VITALS: BP 129/63; TEMP 98.7; O2SAT 100
== END 2025-08-24 09:56 | disposition home or self-care (01) ==
LOC: M ED 00:53
DX: F10.14 Alcohol abuse with alcohol-induced mood disorder (principal); Y90.6 Blood alcohol level of 120-199 mg/100 ml; Z88.0 Allergy status to penicillin; Z88.1 Allergy status to other antibiotic agents; Z88.2 Allergy status to sulfonamides; Z79.899 Other long term (current) drug therapy

== ENCOUNTER → 2025-09-05 | Outpatient (REF) | payer OTHER ==
[2025-09-05 13:18] LABS: APPEARANCE, URINE HAZY (CLEAR); BACTERIA, URINE AUTO NEGATIVE (NEGATIVE); BILIRUBIN, URINE AUTO NEGATIVE (NEGATIVE); BLOOD, URINE BLOOD NEGATIVE (NEGATIVE); GLUCOSE, URINE (UA) AUTO NEGATIVE (NEGATIVE); KETONE, URINE AUTO NEGATIVE (NEGATIVE); LEUKOCYTE ESTERASE, URINE AUTO NEGATIVE (NEGATIVE); MUCUS, URINE SMALL (NEGATIVE); NITRITE, URINE AUTO NEGATIVE (NEGATIVE); PROTEIN, URINE AUTO NEGATIVE (NEGATIVE); RBC, URINE AUTO 0 /HPF (0-3); SPECIFIC GRAVITY URINE AUTO 1.013 (1.002-1.035); SQUAMOUS EPITHELIAL CELL UR AU 3 /HPF (0-6); UROBILINOGEN, URINE AUTO 0.2 mg/dL (0.0-2.0); WBC, URINE AUTO 1 /HPF (0-3)
[2025-09-05 13:37] LABS: BASO # 0.1 10^3/uL (0.0-0.2); BASO % 0.8 % (0.0-1.0); EOS # 0.2 10^3/uL (0.0-0.5); EOS % 3.9 % (0.0-3.0); LYMPH # 2.4 10^3/uL (1.5-5.0); LYMPH % 39.4 % (24.0-44.0); MONO # 0.6 10^3/uL (0.0-0.8); MONO % 9.4 % (2.0-8.0); NEUTROPHILS # 2.8 10^3/uL (1.5-8.5); NEUTROPHILS % 46.2 % (36.0-66.0); PLATELET COUNT, AUTOMATED 285 10^3/uL (150-450)
[2025-09-05 14:09] LABS: VITAMIN B12 LEVEL 656 PG/ML (211-911)
[2025-09-05 14:10] LABS: ALT/SGPT 11 U/L (7.0-40); AST/SGOT 15 U/L (<34); CALCIUM LEVEL 8.6 MG/DL (8.5-10.1); CARBON DIOXIDE LEVEL 24 MMOL/L (20-31); CHLORIDE LEVEL 112 MMOL/L (98-107); CHOLESTEROL LEVEL 220 MG/DL (<200); CHOLESTEROL RISK RATIO 3.09 (<5); CREATININE FOR GFR 0.74 MG/DL (0.55-1.30); GLOMERULAR FILTRATION RATE > 90.0 (>58); IRON (FE) 40 UG/DL (50-170); LDL CHOLESTEROL 118.0 MG/DL (<100); MAGNESIUM LEVEL 2.2 MG/DL (1.8-2.4); NON-HDL-C 149.0 MG/DL; PERCENT SATURATION 12.3 % (13.2-45.0); POTASSIUM SERUM 4.6 MMOL/L (3.5-5.1); SODIUM LEVEL 144 MMOL/L (136-145); TRIGLYCERIDES LEVEL 155 MG/DL (<150)
[2025-09-05 14:12] LABS: TOTAL 25(OH) VITAMIN D 55.8 NG/ML (20.0-100.0)
[2025-09-05 14:21] LABS: ESTIMATED AVERAGE GLUCOSE 97.0 MG/DL (60-110)
[2025-09-08 20:22] LABS: LYME TOTAL ANTIBODY CIA <= 0.90 Index (<=0.90)
== END ==
LOC: M LAB REF 11:59
PROVIDERS: ATTEND Physician Assistant
DX: R35.0 Frequency of micturition (principal); D64.9 Anemia, unspecified; E55.9 Vitamin D deficiency, unspecified; E66.3 Overweight; R53.83 Other fatigue; F10.10 Alcohol abuse, uncomplicated